=== PATIENT | male | born 1975 | race Caucasian/White ===

== ENCOUNTER 2018-12-17 19:51 | Emergency (ER) | payer OTHER ==
[2018-12-17 21:18] LABS: Basophils % (Auto) 0.5 % (0.0-1.8); Eosinophils # (Auto) 0.2 K/mm3 (0.0-0.4); Eosinophils % (Auto) 1.5 % (0.0-4.3); Hematocrit 40.1 % (35.5-45.6); Hemoglobin 13.3 gm/dl (11.8-15.2); Lymphocytes % (Auto) 37.7 % (13.4-35.0); Mean Corpuscular HGB Conc 33 % (32-34); Mean Corpuscular Volume 88 fl (84-94); Monocytes # (Auto) 0.6 K/mm3 (0.0-0.8); Monocytes % (Auto) 6.1 % (0.0-7.3); Platelet Count 289 K/mm3 (140-440); Red Blood Count 4.55 M/mm3 (3.65-5.03); Red Cell Distribution Width 13.8 % (13.2-15.2)
[2018-12-17 21:41] LABS: BUN/Creatinine Ratio 15; Blood Urea Nitrogen 17 mg/dL (9-20); Calcium 8.7 mg/dL (8.4-10.2); Hemolysis Index 8
[2018-12-17] MEDS ORDERED: BACTRIM DS PO ONE (22:11)
[2018-12-17] MEDS ORDERED: KEFLEX PO ONE (22:11)
--- NOTE | 2018-12-17 22:28 | Emergency Department Report ---
ED Lower Extremity HPI - General Chief Complaint: Extremity Injury, Lower Stated Complaint: TOE PAIN SWELLING Time Seen by Provider: 12/17/18 22:07 Source: patient Mode of arrival: Ambulatory Limitations: No Limitations - History of Present Illness Initial Comments: Mr. Weinberg is a very pleasant 43-year-old male who presents with fourth and fifth toe swelling He has an ulcer in between his fourth and fifth toes. He has a history of diabetic foot ulcer on the right. Had been followed by [facility] in [place]. 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 He currently does not have a primary physician. He has mild pain. + redness and swelling. He takes metformin. His blood sugar readings normally reads in the 200 range. No history of trauma. MD Complaint: other (left foot diabetic infection) -: Gradual, days(s) (2-3) Injury: Hip: Left, Foot: Left, Toes: Left Severity: mild Improves With: nothing Worsens With: nothing Context: other (diabetic) - Related Data Home Medications Medication Instructions Recorded Confirmed Last Taken metFORMIN 850 mg PO TID 12/17/18 12/17/18 Unknown Previous Rx's Medication Instructions Recorded Last Taken Type Sulfamethoxazole/Trimethoprim 1 each PO BID 10 Days #20 tablet 12/17/18 Unknown Rx [Bactrim DS TAB] cephALEXin [Keflex] 500 mg PO Q6HR 10 Days #40 capsule 12/17/18 Unknown Rx Allergies Allergy/AdvReac Type Severity Reaction Status Date / Time No Known Allergies Allergy Unverified 12/17/18 19:53 ED Review of Systems ROS: Stated complaint: TOE PAIN SWELLING Other details as noted in HPI Comment: All other systems reviewed and negative Constitutional: denies: fever, malaise Respiratory: denies: cough Cardiovascular: denies: chest pain ED Past Medical Hx - Past Medical History Previous Medical History?: Yes Hx Diabetes: Yes Additional medical history: Right diabetic foot ulcer - Surgical History Past Surgical History?: No - Social History Smoking Status: Current Every Day Smoker Substance Use Type: Alcohol 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 - Medications Home Medications: Home Medications Medication Instructions Recorded Confirmed Last Taken Type Sulfamethoxazole/Trimethoprim 1 each PO BID 10 Days #20 tablet 12/17/18 Unknown Rx [Bactrim DS TAB] cephALEXin [Keflex] 500 mg PO Q6HR 10 Days #40 capsule 12/17/18 Unknown Rx metFORMIN 850 mg PO TID 12/17/18 12/17/18 Unknown History ED Physical Exam - General Limitations: No Limitations General appearance: alert, in no apparent distress - Head Head exam: Present: atraumatic, normocephalic - Eye Eye exam: Present: normal appearance - ENT ENT exam: Present: mucous membranes moist - Neck Neck exam: Present: normal inspection, full ROM - Respiratory Respiratory exam: Present: normal lung sounds bilaterally. Absent: respiratory distress, wheezes, rales, rhonchi - Cardiovascular Cardiovascular Exam: Present: regular rate, normal rhythm, normal heart sounds. Absent: systolic murmur, diastolic murmur, rubs, gallop - GI/Abdominal GI/Abdominal exam: Present: soft, normal bowel sounds. Absent: distended, tenderness, guarding, rebound - Rectal Rectal exam: Present: deferred - Extremities Exam Extremities exam: Present: other (erythematous edematous fourth and fifth toes on the left foot 2+ DP pulse small 1 cm circular ulcer at the lateral portion of the fourth toe no drainage) - Back Exam Back exam: Present: normal inspection - Neurological Exam Neurological exam: Present: alert, oriented X3 - Psychiatric Psychiatric exam: Present: normal affect, normal mood - Skin Skin exam: Present: warm, dry, normal color, other (right foot sole mid foot: 8 mm small ulcer beefy red center, surrouding callused skin no infection). Absent: rash ED Course Vital Signs 12/17/18 12/17/18 19:56 20:46 Temperature 97.9 F 97.9 F Pulse Rate 80 80 Respiratory 18 18 Rate Blood Pressure 159/93 159/93 O2 Sat by Pulse 99 Oximetry ED Lower Extremity MDM - Lab Data Result diagrams: 12/17/18 21:05 12/17/18 21:05 - Radiology Data Radiology results: image reviewed interpreted by me: Left foot radiographs: 2 views: No fracture deviated toes - Medical Decision Making Infected diabetic foot ulcer, mild infection involving fourth and fifth digits Prescribed Bactrim and Keflex. Referred to general surgeon regional project manager for wound care clinic. Also referred to [facility]. Critical care attestation.: If time is entered above; I have spent that time in minutes in the direct care of this critically ill patient, excluding procedure time. ED Disposition Clinical Impression: Diabetic foot infection, Diabetic foot ulcer Disposition: DC- TO HOME OR SELFCARE Is pt being admited?: No Does the pt Need Aspirin: No Condition: Stable Instructions: Diabetic Foot Ulcers (ED) Prescriptions: Sulfamethoxazole/Trimethoprim [Bactrim DS TAB] 1 each PO BID 10 Days #20 tablet cephALEXin [Keflex] 500 mg PO Q6HR 10 Days #40 capsule Referrals: ADONAY SCHMITT MD [Staff Physician] - JOSE ALBERTO FRAGOSO DPM [Staff Physician] - as needed
--- NOTE | 2018-12-17 23:09 | XRay Report ---
PROCEDURE: XR FOOT 2V LT TECHNIQUE: LEFT foot radiographs, AP and lateral views. CPT 33732 HISTORY: Foot infection. Diabetes. COMPARISONS: None . FINDINGS: There is disruption of the terminal phalangeal tuft of second toe. An acute fracture is not identifie d. Bony alignment is within normal limits. IMPRESSION: No acute fracture Dislocation of the second terminal phalangeal tuft may represent osteomyelitis. Clinical correlation is recommended. This document is electronically signed by Landon Peñaloza MD., December 17 2018 11:07:17 PM ET
[2018-12-17 23:13] VITALS: BP 122/75
== END 2018-12-17 23:22 | disposition home or self-care (01) ==
LOC: ED 19:51
DX: E11.621 Type 2 diabetes mellitus with foot ulcer (principal); L97.529 Non-pressure chronic ulcer of other part of left foot with unspecified severity; F17.200 Nicotine dependence, unspecified, uncomplicated
CPT/HCPCS: 36415; 80048; 85025; 99284

== ENCOUNTER 2020-07-14 11:22 | Inpatient (IN) | payer OTHER ==
[2020-07-14] MEDS ORDERED: CLINDAMYCIN 600 MG/50 mL 600 MG/50 ML BAG IV ONE (14:29)
--- NOTE | 2020-07-14 15:19 | XRay Report ---
RIGHT FOOT 3 VIEW(S) INDICATION / CLINICAL INFORMATION: right foot swelling/pain/redness, plantar ulcer COMPARISON: None available. FINDINGS: BONES / JOINT(S): No acute fracture or subluxation. There is chronic lateral deviation of the phalang es no osseous destruction. SOFT TISSUES: No significant abnormality. ADDITIONAL FINDINGS: None. Signer Name: Napoleon Ocampo MD Signed: 07/14/2020 3:15 PM Workstation Name: [id number]
[2020-07-14 15:23] LABS: Alanine Aminotransferase 26 units/L (7-56); Albumin 3.2 g/dL (3.9-5); BUN/Creatinine Ratio 20; Blood Urea Nitrogen 16 mg/dL (9-20); Calcium 8.7 mg/dL (8.4-10.2); Hemolysis Index 3
--- NOTE | 2020-07-14 15:32 | Emergency Department Report ---
ED Extremity Problem HPI - General Chief complaint: Extremity Injury, Lower Stated complaint: RT FEET/SWELLING Time Seen by Provider: 07/14/20 14:03 Source: patient Mode of arrival: Ambulatory Limitations: No Limitations - History of Present Illness Initial comments: Patient is a 45-year-old male presents emergency room with complaints of right foot pain, swelling, redness that began 4 days ago. Patient states that he has had an ulcer to the bottom of his right foot for approximately 4 weeks. He is not currently seeing a primary care doctor or a wound doctor. He denies any drainage, fever, nausea, vomiting, diarrhea, chills, numbness, weakness. He has a past medical history of diabetes and states he takes metformin 850 mg 3 times daily, he states that his sugars have been running normally per patient. He denies any allergies to medications. - Related Data Home Medications Medication Instructions Recorded Confirmed Last Taken metFORMIN 850 mg PO TID 12/17/18 07/14/20 Unknown Previous Rx's Medication Instructions Recorded Last Taken Type Sulfamethoxazole/Trimethoprim 1 each PO BID 10 Days #20 tablet 12/17/18 Unknown Rx [Bactrim DS TAB] cephALEXin [Keflex] 500 mg PO Q6HR 10 Days #40 capsule 12/17/18 Unknown Rx Allergies Allergy/AdvReac Type Severity Reaction Status Date / Time No Known Allergies Allergy Unverified 12/17/18 19:53 ED Review of Systems ROS: Stated complaint: RT FEET/SWELLING Other details as noted in HPI Comment: All other systems reviewed and negative ED Past Medical Hx - Past Medical History Previous Medical History?: Yes Hx Diabetes: Yes Additional medical history: Right diabetic foot ulcer - Surgical History Past Surgical History?: No - Social History Smoking Status: Never Smoker Substance Use Type: None - Medications Home Medications: Home Medications Medication Instructions Recorded Confirmed Last Taken Type Sulfamethoxazole/Trimethoprim 1 each PO BID 10 Days #20 tablet 12/17/18 07/14/20 Unknown Rx [Bactrim DS TAB] cephALEXin [Keflex] 500 mg PO Q6HR 10 Days #40 capsule 12/17/18 07/14/20 Unknown Rx metFORMIN 850 mg PO TID 12/17/18 07/14/20 Unknown History ED Physical Exam - General Limitations: No Limitations General appearance: alert, in no apparent distress - Head Head exam: Present: atraumatic, normocephalic - Eye Eye exam: Present: normal appearance - ENT ENT exam: Present: mucous membranes moist - Respiratory Respiratory exam: Absent: respiratory distress, accessory muscle use - Extremities Exam Extremities exam: Present: other (2 cm ulceration present to the plantar surface of the right foot, no purulent drainage, does not appear to involve the muscle or bone, the right foot is edematous with erythema present, FROM of the right ankle, foot, and toes, neurovascularly intact) - Neurological Exam Neurological exam: Present: alert, oriented X3 - Psychiatric Psychiatric exam: Present: normal affect, normal mood - Skin Skin exam: Present: warm, dry ED Course Vital Signs 07/14/20 07/14/20 07/14/20 11:55 16:20 17:03 Temperature 98.1 F Pulse Rate 86 Respiratory 14 18 18 Rate Blood Pressure 151/91 Blood Pressure [Left] O2 Sat by Pulse 96 99 Oximetry 07/14/20 18:42 Temperature 98.6 F Pulse Rate 93 H Respiratory 18 Rate Blood Pressure Blood Pressure 131/67 [Left] O2 Sat by Pulse 97 Oximetry - Reevaluation(s) Reevaluation #1: 07/14/20 16:07 Dr. Richardson, ER attending evaluated patient at bedside and advised for patient to be admitted - Consultations Consultation #1: 07/14/20 16:[address] Cordova, hospitalist regarding patient presentation and results, will evaluate patient at bedside 07/14/20 17:[address] Cordova, hospitalist who evaluated the patient at bedside, will accept and resume care of patient, advised to bridge patient to [facility] full admission. ED Medical Decision Making - Lab Data Result diagrams: 07/14/20 14:40 07/14/20 14:40 Lab Results 07/14/20 07/14/20 07/14/20 Range/Units 14:40 14:40 14:40 WBC 12.2 H (4.5-11.0) K/mm3 RBC 3.81 (3.65-5.03) M/mm3 Hgb 10.6 L (11.8-15.2) gm/dl Hct 32.9 L (35.5-45.6) % MCV 86 (84-94) fl MCH 28 (28-32) pg MCHC 32 (32-34) % RDW 15.0 (13.2-15.2) % Plt Count 277 (140-440) K/mm3 Lymph % (Auto) 14.7 (13.4-35.0) % [place] % (Auto) 7.5 H (0.0-7.3) % Eos % (Auto) 1.4 (0.0-4.3) % Baso % (Auto) 0.3 (0.0-1.8) % Lymph # (Auto) 1.8 (1.2-5.4) K/mm3 [place] # (Auto) 0.9 H (0.0-0.8) K/mm3 Eos # (Auto) 0.2 (0.0-0.4) K/mm3 Baso # (Auto) 0.0 (0.0-0.1) K/mm3 Seg Neutrophils % 76.1 H (40.0-70.0) % Seg Neutrophils # 9.3 H (1.8-7.7) K/mm3 Sodium 134 L (137-145) mmol/L Potassium 4.5 (3.6-5.0) mmol/L Chloride 99.1 (98-107) mmol/L Carbon Dioxide 23 (22-30) mmol/L Anion Gap 16 mmol/L BUN 16 (9-20) mg/dL Creatinine 0.8 (0.8-1.3) mg/dL Estimated GFR > 60 ml/min BUN/Creatinine Ratio 20 % Glucose 377 H (75-100) mg/dL POC Glucose (70-105) Lactic Acid 1.40 (0.7-2.0) mmol/L Calcium 8.7 (8.4-10.2) mg/dL Total Bilirubin 0.30 (0.1-1.2) mg/dL AST 17 (5-40) units/L ALT 26 (7-56) units/L Alkaline Phosphatase 169 H (35-129) units/L Total Protein 7.2 (6.3-8.2) g/dL Albumin 3.2 L (3.9-5) g/dL Albumin/Globulin Ratio 0.8 % 10/10/20 Range/Units 17:14 WBC (4.5-11.0) K/mm3 RBC (3.65-5.03) M/mm3 Hgb (11.8-15.2) gm/dl Hct (35.5-45.6) % MCV (84-94) fl MCH (28-32) pg MCHC (32-34) % RDW (13.2-15.2) % Plt Count (140-440) K/mm3 Lymph % (Auto) (13.4-35.0) % [place] % (Auto) (0.0-7.3) % Eos % (Auto) (0.0-4.3) % Baso % (Auto) (0.0-1.8) % Lymph # (Auto) (1.2-5.4) K/mm3 [place] # (Auto) (0.0-0.8) K/mm3 Eos # (Auto) (0.0-0.4) K/mm3 Baso # (Auto) (0.0-0.1) K/mm3 Seg Neutrophils % (40.0-70.0) % Seg Neutrophils # (1.8-7.7) K/mm3 Sodium (137-145) mmol/L Potassium (3.6-5.0) mmol/L Chloride (98-107) mmol/L Carbon Dioxide (22-30) mmol/L Anion Gap mmol/L BUN (9-20) mg/dL Creatinine (0.8-1.3) mg/dL Estimated GFR ml/min BUN/Creatinine Ratio % Glucose (75-100) mg/dL POC Glucose 137 H (70-105) Lactic Acid (0.7-2.0) mmol/L Calcium (8.4-10.2) mg/dL Total Bilirubin (0.1-1.2) mg/dL AST (5-40) units/L ALT (7-56) units/L Alkaline Phosphatase (35-129) units/L Total Protein (6.3-8.2) g/dL Albumin (3.9-5) g/dL Albumin/Globulin Ratio % - Radiology Data Radiology results: report reviewed RIGHT FOOT 3 VIEW(S) INDICATION / CLINICAL INFORMATION: right foot swelling/pain/redness, plantar ulcer COMPARISON: None available. FINDINGS: BONES / JOINT(S): No acute fracture or subluxation. There is chronic lateral deviation of the phalanges no osseous destruction. SOFT TISSUES: No significant abnormality. ADDITIONAL FINDINGS: None. Signer Name: Polina Ochoa MD Signed: 07/14/2020 3:15 PM Workstation Name: [id number] Transcribed By: SS Dictated By: POLINA OCHOA Electronically Authenticated By: POLINA OCHOA Signed Date/Time: 07/14/201514 DD/ 10 TD/TT: - Medical Decision Making Patient is a 45-year-old male presents emergency room with complaints of right foot pain, swelling, redness that began 4 days ago. Patient states that he has had an ulcer to the bottom of his right foot for approximately 4 weeks. He is not currently seeing a primary care doctor or a wound doctor. He denies any drainage, fever, nausea, vomiting, diarrhea, chills, numbness, weakness. He has a past medical history of diabetes and states he takes metformin 850 mg 3 times daily, he states that his sugars have been running normally per patient. He denies any allergies to medications. Vitals are stable. On exam:2 cm ulceration present to the plantar surface of the right foot, no purulent drainage, does not appear to involve the muscle or bone, the right foot is edematous with erythema present, FROM of the right ankle, foot, and toes, neurovascularly intact. Labs with white blood cell count of 12.2, glucose is 377. XR right foot: BONES / JOINT(S): No acute fracture or subluxation. There is chronic lateral deviation of the phalanges no osseous destruction. SOFT TISSUES: No significant abnormality. ADDITIONAL FINDINGS: None. Patient given pain medication, IV fluids, clindamycin IV, IV insulin. Blood glucose improved to 137. Patient has significant cellulitis of the right foot. Dr. Richardson, ER attending evaluated patient at bedside and advised for patient to be admitted. Spoke to Dr. Cordova, hospitalist regarding patient presentation and results, will evaluate patient at bedside. Spoke to Dr. Cordova, hospitalist who evaluated the patient at bedside, will accept and resume care of patient, advised to bridge patient to [facility] full admission. pt admitted to hospitalist service. - Differential Diagnosis Cellulitis, abscess, diabetic ulcer, osteomyelitis Critical care attestation.: If time is entered above; I have spent that time in minutes in the direct care of this critically ill patient, excluding procedure time. ED Disposition Clinical Impression: Cellulitis of right foot Diabetic foot ulcer Qualifiers: Diabetic foot ulcer location: midfoot Diabetes mellitus type: type 2 Laterality: right Non-pressure ulcer stage: with fat layer exposed Qualified Code(s): E11.621 - Type 2 diabetes mellitus with foot ulcer Leukocytosis Qualifiers: Leukocytosis type: unspecified Qualified Code(s): D72.829 - Elevated white blood cell count, unspecified Uncontrolled diabetes mellitus with hyperglycemia Qualifiers: Diabetes mellitus type: type 2 Qualified Code(s): E11.65 - Type 2 diabetes mellitus with hyperglycemia Disposition: 09 OP ADMIT IP TO THIS HOSP Is pt being admited?: Yes Does the pt Need Aspirin: No Condition: Fair Time of Disposition: 17:36
[2020-07-14] MEDS ORDERED: INSULIN REGULAR, HUMAN 100 UNIT/ML 3ML VIAL IV ONE (15:37)
[2020-07-14] MEDS ORDERED: SODIUM CHLORIDE 0.9% 1000 ML 1,000 ML IV ONE (15:37)
[2020-07-14] MEDS ORDERED: INSULIN REGULAR, HUMAN 100 UNITS/1 ML ONE (15:42)
[2020-07-14 15:44] LABS: Basophils % (Auto) 0.3 % (0.0-1.8); Eosinophils # (Auto) 0.2 K/mm3 (0.0-0.4); Eosinophils % (Auto) 1.4 % (0.0-4.3); Hematocrit 32.9 % (35.5-45.6); Hemoglobin 10.6 gm/dl (11.8-15.2); Lymphocytes # (Auto) 1.8 K/mm3 (1.2-5.4); Lymphocytes % (Auto) 14.7 % (13.4-35.0); Mean Corpuscular HGB Conc 32 % (32-34); Mean Corpuscular Volume 86 fl (84-94); Monocytes # (Auto) 0.9 K/mm3 (0.0-0.8); Monocytes % (Auto) 7.5 % (0.0-7.3); Platelet Count 277 K/mm3 (140-440); Red Blood Count 3.81 M/mm3 (3.65-5.03)
[2020-07-14] MEDS ORDERED: oxyCODONE /ACETAMINOPHEN 5-325MG TAB PO ONE (17:01)
[2020-07-14] MEDS ORDERED: oxyCODONE /ACETAMINOPHEN 5-325MG TAB ONE (17:01)
--- NOTE | 2020-07-14 22:01 | History and Physical Report ---
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 Patient also has a small ulcer on the bottom of the feet about 1.5 cm 9 x 1.5 cm which is circular appreciated. Warm to touch. And also running fever. Patient states his blood glucose levels are very within 203 100. Patient is on oral hypoglycemics. - Past Medical History Previous Medical History?: Yes Hx Diabetes: Yes Additional medical history: Right diabetic foot ulcer - Surgical History Past Surgical History?: No - Social History Smoking Status: Never Smoker Substance Use Type: None family history Htn - Medications Home Medications: Home Medications Medication Instructions Recorded Confirmed Last Taken Type Sulfamethoxazole/Trimethoprim 1 each PO BID 10 Days #20 tablet 12/17/18 07/14/20 Unknown Rx [Bactrim DS TAB] cephALEXin [Keflex] 500 mg PO Q6HR 10 Days #40 capsule 12/17/18 07/14/20 Unknown Rx metFORMIN 850 mg PO TID 12/17/18 07/14/20 Unknown History Review of Systems ROS: Stated complaint: RT FEET/SWELLING Other details as noted in HPI Comment: All other systems reviewed and negative Medications and Allergies Allergies Allergy/AdvReac Type Severity Reaction Status Date / Time No Known Allergies Allergy Unverified 12/17/18 19:53 Home Medications Medication Instructions Recorded Confirmed Last Taken Type Sulfamethoxazole/Trimethoprim 1 each PO BID 10 Days #20 tablet 12/17/18 07/14/20 Unknown Rx [Bactrim DS TAB] cephALEXin [Keflex] 500 mg PO Q6HR 10 Days #40 capsule 12/17/18 07/14/20 Unknown Rx metFORMIN 850 mg PO TID 12/17/18 07/14/20 Unknown History Exam - Constitutional Vitals: Temp Pulse Resp BP Pulse Ox 98.6 F 93 H 18 131/67 97 07/14/20 18:42 07/14/20 18:42 07/14/20 18:42 07/14/20 18:42 07/14/20 18:42 General appearance: Present: no acute distress, well-nourished - EENT Eyes: Present: PERRL ENT: hearing intact, clear oral mucosa - Neck Neck: Present: supple, normal ROM - Respiratory Respiratory effort: normal Respiratory: bilateral: CTA - Cardiovascular Heart rate: 78 Rhythm: regular Heart Sounds: Present: S1 & S2. Absent: rub, click - Extremities Extremities: pulses symmetrical, No edema Extremity abnormal: other (Right foot swelling and perforated ulcer on the heel near the metatarsal head of the third on the right foot. Warm to touch the whole foot) Peripheral Pulses: within normal limits - Abdominal General gastrointestinal: Present: soft, non-tender, non-distended, normal bowel sounds Male genitourinary: Present: normal - Integumentary Integumentary: Present: clear, warm, dry - Musculoskeletal Musculoskeletal: gait normal, strength equal bilaterally - Psychiatric Psychiatric: appropriate mood/affect, intact judgment & insight - Neurologic Neurologic: CNII-XII intact, moves all extremities Results - Labs CBC & Chem 7: 07/14/20 14:40 07/14/20 14:40 Labs: Laboratory Last Values WBC 12.2 K/mm3 (4.5-11.0) H 07/14/20 14:40 RBC 3.81 M/mm3 (3.65-5.03) 07/14/20 14:40 Hgb 10.6 gm/dl (11.8-15.2) L 07/14/20 14:40 Hct 32.9 % (35.5-45.6) L 07/14/20 14:40 MCV 86 fl (84-94) 07/14/20 14:40 MCH 28 pg (28-32) 07/14/20 14:40 MCHC 32 % (32-34) 07/14/20 14:40 RDW 15.0 % (13.2-15.2) 07/14/20 14:40 Plt Count 277 K/mm3 (140-440) 07/14/20 14:40 Lymph % (Auto) 14.7 % (13.4-35.0) 07/14/20 14:40 [place] % (Auto) 7.5 % (0.0-7.3) H 07/14/20 14:40 Eos % (Auto) 1.4 % (0.0-4.3) 07/14/20 14:40 Baso % (Auto) 0.3 % (0.0-1.8) 07/14/20 14:40 Lymph # (Auto) 1.8 K/mm3 (1.2-5.4) 07/14/20 14:40 [place] # (Auto) 0.9 K/mm3 (0.0-0.8) H 07/14/20 14:40 Eos # (Auto) 0.2 K/mm3 (0.0-0.4) 07/14/20 14:40 Baso # (Auto) 0.0 K/mm3 (0.0-0.1) 07/14/20 14:40 Seg Neutrophils % 76.1 % (40.0-70.0) H 07/14/20 14:40 Seg Neutrophils # 9.3 K/mm3 (1.8-7.7) H 07/14/20 14:40 Sodium 134 mmol/L (137-145) L 07/14/20 14:40 Potassium 4.5 mmol/L (3.6-5.0) 07/14/20 14:40 Chloride 99.1 mmol/L (98-107) 07/14/20 14:40 Carbon Dioxide 23 mmol/L (22-30) 07/14/20 14:40 Anion Gap 16 mmol/L 07/14/20 14:40 BUN 16 mg/dL (9-20) 07/14/20 14:40 Creatinine 0.8 mg/dL (0.8-1.3) 07/14/20 14:40 Estimated GFR > 60 ml/min 07/14/20 14:40 BUN/Creatinine Ratio 20 % 07/14/20 14:40 Glucose 377 mg/dL (75-100) H 07/14/20 14:40 POC Glucose 137 (70-105) H 07/14/20 17:14 Lactic Acid 1.40 mmol/L (0.7-2.0) 07/14/20 14:40 Calcium 8.7 mg/dL (8.4-10.2) 07/14/20 14:40 Total Bilirubin 0.30 mg/dL (0.1-1.2) 07/14/20 14:40 AST 17 units/L (5-40) 07/14/20 14:40 ALT 26 units/L (7-56) 07/14/20 14:40 Alkaline Phosphatase 169 units/L (35-129) H 07/14/20 14:40 Total Protein 7.2 g/dL (6.3-8.2) 07/14/20 14:40 Albumin 3.2 g/dL (3.9-5) L 07/14/20 14:40 Albumin/Globulin Ratio 0.8 % 07/14/20 14:40 Microbiology: Microbiology 07/14/20 14:40 Peripheral/Venous Blood Culture - Preliminary Culture in Progress 07/14/20 14:35 Peripheral/Venous Blood Culture - Preliminary Culture in Progress Vasquez/IV: Voiding Method Urinal Assessment and Plan Advance Directives: Yes (Full code) VTE prophylaxis?: Chemical Plan of care discussed with patient/family: Yes - Patient Problems (1) Cellulitis of right foot Current Visit: Yes Status: Acute Plan to address problem: Patient initiated on IV Unasyn and vancomycin pending wound cultures (2) Diabetic foot ulcer Current Visit: Yes Status: Acute Qualifiers: Diabetic foot ulcer location: midfoot Diabetes mellitus type: type 2 Laterality: right Non-pressure ulcer stage: with fat layer exposed Qualified Code(s): E11.621 - Type 2 diabetes mellitus with foot ulcer; L97.412 - 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 Patient initiated on Novolin 70/30 20 units twice a day No hypoglycemics which were discontinued Continue metformin at thousand twice daily (4) DVT prophylaxis Current Visit: Yes Status: Acute Plan to address problem: On heparin and GI prophylaxis
[2020-07-14] MEDS ORDERED: ONDANSETRON 4 MG/2 ML INJ IV PRN (22:02)
[2020-07-14] MEDS ORDERED: METOCLOPRAMIDE 10 MG/2 ML INJ IV PRN (22:02)
[2020-07-14] MEDS ORDERED: VANCOMYCIN PHARMACY TO DOSE IV SCH (23:00)
[2020-07-14] MEDS: SODIUM CHLORIDE 0.9% 1000 ML 1,000 ML IV SCH (23:01)
[2020-07-14] MEDS: VANCOMYCIN 2,000 MG in SODIUM CHLORIDE 0.9% 500 ML 500 ML IV SCH (23:02)
[2020-07-14] MEDS: INSULIN LISPRO 100 UNIT/ML VIAL 3 mL SUB-Q SCH (23:04)
[2020-07-14] MEDS: HYDROmorphone 1 MG/1 ML INJ IV PRN (23:10)
[2020-07-15] MEDS: AMPICILLIN/SULBACTA 3GM/100ML 3 GM/100 ML BAG IV SCH ×4 (00:29→17:43)
[2020-07-15] MEDS: HYDROmorphone 1 MG/1 ML INJ IV PRN ×3 (04:40→20:42)
[2020-07-15 06:16] LABS: Basophils % (Auto) 0.3 % (0.0-1.8); Eosinophils # (Auto) 0.1 K/mm3 (0.0-0.4); Eosinophils % (Auto) 1.1 % (0.0-4.3); Hematocrit 31.7 % (35.5-45.6); Hemoglobin 10.3 gm/dl (11.8-15.2); Lymphocytes # (Auto) 2.3 K/mm3 (1.2-5.4); Lymphocytes % (Auto) 18.8 % (13.4-35.0); Mean Corpuscular HGB Conc 33 % (32-34); Mean Corpuscular Volume 86 fl (84-94); Monocytes # (Auto) 1.1 K/mm3 (0.0-0.8); Monocytes % (Auto) 8.5 % (0.0-7.3); Platelet Count 267 K/mm3 (140-440); Red Blood Count 3.68 M/mm3 (3.65-5.03)
[2020-07-15 06:31] LABS: Alanine Aminotransferase 23 units/L (7-56); Albumin 2.6 g/dL (3.9-5); Blood Urea Nitrogen 11 mg/dL (9-20); Calcium 8.6 mg/dL (8.4-10.2); Hemolysis Index 0
[2020-07-15 06:37] LABS: BUN/Creatinine Ratio 18
[2020-07-15] MEDS: FAMOTIDINE 20 MG TAB PO SCH ×2 (09:16→21:01)
[2020-07-15] MEDS: HEPARIN 5,000 UNIT/1 ML VIAL SUB-Q SCH ×2 (09:16→21:01)
[2020-07-15] MEDS: INSULIN NPH/REGULAR 70/30 INJ SUB-Q SCH ×2 (09:16→16:51)
[2020-07-15] MEDS: INSULIN LISPRO 100 UNIT/ML VIAL 3 mL SUB-Q SCH ×4 (09:17→21:01)
[2020-07-15] MEDS: oxyCODONE /ACETAMINOPHEN 5-325MG TAB PO PRN (09:25)
[2020-07-15] MEDS: VANCOMYCIN 2,000 MG in SODIUM CHLORIDE 0.9% 500 ML 500 ML IV SCH (11:59)
[2020-07-15] MEDS: SODIUM CHLORIDE 0.9% 1000 ML 1,000 ML IV SCH (15:42)
[2020-07-15] MEDS: ACETAMINOPHEN 325 MG TAB PO PRN (16:47)
--- NOTE | 2020-07-15 19:25 | Progress Note ---
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 Patient also has a small ulcer on the bottom of the feet about 1.5 cm 9 x 1.5 cm which is circular appreciated. Warm to touch. And also running fever. Patient states his blood glucose levels are very within 203 100. Patient is on oral hypoglycemics. Objective - Constitutional Vitals: Vital Signs - 12hr 07/15/20 07/15/20 11:20 16:24 Temperature 98.9 F 100.8 F H Pulse Rate 81 89 Respiratory 18 18 Rate Blood Pressure 139/84 171/93 O2 Sat by Pulse 94 94 Oximetry General appearance: Present: no acute distress, well-nourished - EENT Eyes: PERRL, EOM intact ENT: hearing intact, clear oral mucosa Ears: bilateral: normal - Neck Neck: supple, normal ROM - Respiratory Respiratory effort: normal Respiratory: bilateral: CTA - Breasts Breasts: normal - Cardiovascular Heart rate: 78 Rhythm: regular Heart Sounds: Present: S1 & S2. Absent: gallop, rub Extremities: pulses intact, No edema, normal color, Full ROM Extremity abnormal: other (Right foot perforated ulcer 2 cm x 2 cm and right foot warm to touch) - Gastrointestinal General gastrointestinal: Present: soft, non-tender, non-distended, normal bowel sounds - Genitourinary Male genitourinary: normal - Integumentary Integumentary: clear, warm, dry - Musculoskeletal Musculoskeletal: 1, strength equal bilaterally - Neurologic Neurologic: moves all extremities - Psychiatric Psychiatric: memory intact, appropriate mood/affect, intact judgment & insight - Labs CBC & Chem 7: 07/15/20 05:01 07/15/20 05:01 Labs: Abnormal lab results 07/14/20 07/15/20 07/15/20 Range/Units 21:43 05:01 05:01 WBC 12.4 H (4.5-11.0) K/mm3 Hgb 10.3 L (11.8-15.2) gm/dl Hct 31.7 L (35.5-45.6) % [place] % (Auto) 8.5 H (0.0-7.3) % [place] # (Auto) 1.1 H (0.0-0.8) K/mm3 Seg Neutrophils % 71.3 H (40.0-70.0) % Seg Neutrophils # 8.9 H (1.8-7.7) K/mm3 Sodium 136 L (137-145) mmol/L Creatinine 0.6 L (0.8-1.3) mg/dL Glucose 169 H (75-100) mg/dL POC Glucose 207 H (70-105) Hemoglobin A1c (4-6) % Alkaline Phosphatase 205 H (35-129) units/L Albumin 2.6 L (3.9-5) g/dL 07/15/20 07/15/20 07/15/20 Range/Units 05:01 07:46 11:56 WBC (4.5-11.0) K/mm3 Hgb (11.8-15.2) gm/dl Hct (35.5-45.6) % [place] % (Auto) (0.0-7.3) % [place] # (Auto) (0.0-0.8) K/mm3 Seg Neutrophils % (40.0-70.0) % Seg Neutrophils # (1.8-7.7) K/mm3 Sodium (137-145) mmol/L Creatinine (0.8-1.3) mg/dL Glucose (75-100) mg/dL POC Glucose 159 H 181 H (70-105) Hemoglobin A1c 10.9 H (4-6) % Alkaline Phosphatase (35-129) units/L Albumin (3.9-5) g/dL 07/15/20 Range/Units 16:17 WBC (4.5-11.0) K/mm3 Hgb (11.8-15.2) gm/dl Hct (35.5-45.6) % [place] % (Auto) (0.0-7.3) % [place] # (Auto) (0.0-0.8) K/mm3 Seg Neutrophils % (40.0-70.0) % Seg Neutrophils # (1.8-7.7) K/mm3 Sodium (137-145) mmol/L Creatinine (0.8-1.3) mg/dL Glucose (75-100) mg/dL POC Glucose 179 H (70-105) Hemoglobin A1c (4-6) % Alkaline Phosphatase (35-129) units/L Albumin (3.9-5) g/dL
[2020-07-16] MEDS: VANCOMYCIN 2,000 MG in SODIUM CHLORIDE 0.9% 500 ML 500 ML IV SCH ×2 (00:29→13:48)
[2020-07-16] MEDS: oxyCODONE /ACETAMINOPHEN 5-325MG TAB PO PRN ×3 (00:29→23:17)
[2020-07-16] MEDS: AMPICILLIN/SULBACTA 3GM/100ML 3 GM/100 ML BAG IV SCH ×5 (00:30→23:55)
[2020-07-16] MEDS: HYDROmorphone 1 MG/1 ML INJ IV PRN ×3 (05:47→21:35)
[2020-07-16 07:19] LABS: Basophils % (Auto) 0.2 % (0.0-1.8); Eosinophils # (Auto) 0.1 K/mm3 (0.0-0.4); Hematocrit 30.6 % (35.5-45.6); Hemoglobin 10.1 gm/dl (11.8-15.2); Lymphocytes % (Auto) 16.7 % (13.4-35.0); Mean Corpuscular HGB Conc 33 % (32-34); Mean Corpuscular Volume 85 fl (84-94); Monocytes # (Auto) 1.1 K/mm3 (0.0-0.8); Platelet Count 266 K/mm3 (140-440); Red Blood Count 3.61 M/mm3 (3.65-5.03); Red Cell Distribution Width 14.6 % (13.2-15.2)
[2020-07-16 07:41] LABS: Blood Urea Nitrogen 8 mg/dL (9-20); Calcium 8.6 mg/dL (8.4-10.2); Hemolysis Index 8
[2020-07-16 07:45] LABS: BUN/Creatinine Ratio 16
[2020-07-16] MEDS: INSULIN LISPRO 100 UNIT/ML VIAL 3 mL SUB-Q SCH ×4 (09:15→23:15)
[2020-07-16] MEDS: INSULIN NPH/REGULAR 70/30 INJ SUB-Q SCH ×2 (10:06→18:07)
[2020-07-16] MEDS: FAMOTIDINE 20 MG TAB PO SCH ×2 (10:32→21:35)
[2020-07-16] MEDS: HEPARIN 5,000 UNIT/1 ML VIAL SUB-Q SCH ×2 (10:32→21:35)
--- NOTE | 2020-07-16 13:03 | Progress Note ---
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 Patient also has a small ulcer on the bottom of the feet about 1.5 cm 9 x 1.5 cm which is circular appreciated. Warm to touch. And also running fever. Patient states his blood glucose levels are very within 203 100. Patient is on oral hypoglycemics 07/16 patient is alert and oriented and feels better. He offers no specific complaints except pain in the right foot which he states is well controlled with pain medication He denies any chest pain or shortness of breath Denies any fever or chills but has low-grade temp T-max 100.2 today. Denies cough, nausea or abdominal pain Lab results reviewed Assessment and plan Infected diabetic foot ulcer Cellulitis right foot Blood cultures no growth in 24 hours Continue IV Unasyn and vancomycin Wound care nurse consulted Type 2 diabetes Continue twice daily insulin regimen Accu-Cheks reviewed Hypertension ?? . BP recordings reviewed We will start the patient on low-dose lisinopril Monitor blood pressure Leukocytosis Mild Monitor CBC Normocytic anemia No overt bleed H&H stable Objective - Constitutional Vitals: Vital Signs - 12hr 07/16/20 07/16/20 07/16/20 04:47 10:29 11:52 Temperature 99.1 F 100.2 F H Pulse Rate 84 86 89 Respiratory 16 20 Rate Blood Pressure 177/104 194/100 160/82 O2 Sat by Pulse 95 94 Oximetry General appearance: Present: no acute distress - EENT Eyes: PERRL, EOM intact ENT: hearing intact, clear oral mucosa - Neck Neck: supple, normal ROM, no masses or JVD - Respiratory Respiratory effort: normal Respiratory: bilateral: CTA - Cardiovascular Rhythm: regular Heart Sounds: Present: S1 & S2 Extremity abnormal: edema (Right pedal edema, erythema over the dorsum of the right foot, opening in the plantar aspect of distal right foot with no active discharge) - Gastrointestinal General gastrointestinal: Present: soft, non-tender Rectal Exam: deferred - Genitourinary Male genitourinary: deferred - Integumentary Integumentary: rash (Erythematous rash over dorsum of right foot) - Musculoskeletal Musculoskeletal: strength equal bilaterally - Neurologic Neurologic: CNII-XII intact, no focal deficits, moves all extremities - Psychiatric Psychiatric: appropriate mood/affect - Labs CBC & Chem 7: 07/16/20 06:33 07/16/20 06:33 Labs: Abnormal lab results 07/15/20 07/15/20 07/16/20 Range/Units 16:17 21:04 06:33 WBC 12.1 H (4.5-11.0) K/mm3 RBC 3.61 L (3.65-5.03) M/mm3 Hgb 10.1 L (11.8-15.2) gm/dl Hct 30.6 L (35.5-45.6) % [place] % (Auto) 9.0 H (0.0-7.3) % [place] # (Auto) 1.1 H (0.0-0.8) K/mm3 Seg Neutrophils % 73.1 H (40.0-70.0) % Seg Neutrophils # 8.8 H (1.8-7.7) K/mm3 Sodium (137-145) mmol/L Carbon Dioxide (22-30) mmol/L BUN (9-20) mg/dL Creatinine (0.8-1.3) mg/dL Glucose (75-100) mg/dL POC Glucose 179 H 117 H (70-105) 07/16/20 07/16/20 Range/Units 06:33 07:59 WBC (4.5-11.0) K/mm3 RBC (3.65-5.03) M/mm3 Hgb (11.8-15.2) gm/dl Hct (35.5-45.6) % [place] % (Auto) (0.0-7.3) % [place] # (Auto) (0.0-0.8) K/mm3 Seg Neutrophils % (40.0-70.0) % Seg Neutrophils # (1.8-7.7) K/mm3 Sodium 134 L (137-145) mmol/L Carbon Dioxide 21 L (22-30) mmol/L BUN 8 L (9-20) mg/dL Creatinine 0.5 L (0.8-1.3) mg/dL Glucose 126 H (75-100) mg/dL POC Glucose 131 H (70-105)
[2020-07-16] MEDS: LISINOPRIL 10 MG TAB PO SCH (13:47)
[2020-07-16] MEDS: ACETAMINOPHEN 325 MG TAB PO PRN ×2 (15:46→23:10)
[2020-07-17] MEDS: VANCOMYCIN 2,000 MG in SODIUM CHLORIDE 0.9% 500 ML 500 ML IV SCH ×3 (01:08→22:49)
[2020-07-17] MEDS: HYDROmorphone 1 MG/1 ML INJ IV PRN (04:37)
[2020-07-17] MEDS: AMPICILLIN/SULBACTA 3GM/100ML 3 GM/100 ML BAG IV SCH ×3 (05:52→17:51)
[2020-07-17] MEDS: oxyCODONE /ACETAMINOPHEN 5-325MG TAB PO PRN ×3 (06:49→19:58)
--- NOTE | 2020-07-17 07:18 | Progress Note ---
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 Patient also has a small ulcer on the bottom of the feet about 1.5 cm 9 x 1.5 cm which is circular appreciated. Warm to touch. And also running fever. Patient states his blood glucose levels are very within 203 100. Patient is on oral hypoglycemics 07/16 patient is alert and oriented and feels better. He offers no specific complaints except pain in the right foot which he states is well controlled with pain medication He denies any chest pain or shortness of breath Denies any fever or chills but has low-grade temp T-max 100.2 today. Denies cough, nausea or abdominal pain Lab results reviewed 07/17: Tmax of 99.9, last night was upto 102. Continue management, follow cultures, obtain AM labs. ID consulted Assessment and plan Sepsis secondary to Infected diabetic foot ulcer Abx as noted below Check lactate level Cellulitis right foot Blood cultures no growth in 24 hours Continue IV Unasyn and vancomycin Wound care nurse consulted and input noted Awaiting ID input Type 2 diabetes- POORLY CONTROLLED Continue twice daily insulin regimen Accu-Cheks reviewed Obtain Clinical Nurse Leader consultation for diabetic education Hypertension ?? . BP recordings reviewed We will start the patient on low-dose lisinopril Continue improving since addition of lisinoprile Monitor blood pressure Leukocytosis Mild Monitor CBC Normocytic anemia No overt bleed H&H stable Morbid Obesity dvt/gi prophy Continue in hospital stay for better control, as wound is at high risk for deteriorating History Interval history: Patient seen and examined, reports some improvement, does not have a primary doctor. Hospitalist Physical - Constitutional Vitals: Temp Pulse Resp BP Pulse Ox 98.6 F 82 18 149/74 96 07/17/20 04:43 07/17/20 05:51 07/17/20 05:51 07/17/20 05:51 07/17/20 05:51 General appearance: Present: no acute distress, well-nourished - EENT Eyes: Present: PERRL - Neck Neck: Present: supple, normal ROM - Respiratory Respiratory effort: normal Respiratory: bilateral: CTA - Cardiovascular Rhythm: regular Heart Sounds: Present: S1 & S2. Absent: systolic murmur - Extremities Extremities: no ischemia, pulses intact, No edema, Full ROM Peripheral Pulses: within normal limits - Abdominal General gastrointestinal: soft - Integumentary Integumentary: Present: warm, erythema (RIGHT FOOT SWELLING AND ULCERATION) - Psychiatric Psychiatric: appropriate mood/affect, intact judgment & insight, memory intact, cooperative - Neurologic Neurologic: CNII-XII intact, moves all extremities, gait normal - Allied Health Allied health notes reviewed: nursing Results - Labs CBC & Chem 7: 07/16/20 06:33 07/16/20 06:33 Labs: Laboratory Last Values WBC 12.1 K/mm3 (4.5-11.0) H 07/16/20 06:33 RBC 3.61 M/mm3 (3.65-5.03) L 07/16/20 06:33 Hgb 10.1 gm/dl (11.8-15.2) L 07/16/20 06:33 Hct 30.6 % (35.5-45.6) L 07/16/20 06:33 MCV 85 fl (84-94) 07/16/20 06:33 MCH 28 pg (28-32) 07/16/20 06:33 MCHC 33 % (32-34) 07/16/20 06:33 RDW 14.6 % (13.2-15.2) 07/16/20 06:33 Plt Count 266 K/mm3 (140-440) 07/16/20 06:33 Lymph % (Auto) 16.7 % (13.4-35.0) 07/16/20 06:33 [place] % (Auto) 9.0 % (0.0-7.3) H 07/16/20 06:33 Eos % (Auto) 1.0 % (0.0-4.3) 07/16/20 06:33 Baso % (Auto) 0.2 % (0.0-1.8) 07/16/20 06:33 Lymph # (Auto) 2.0 K/mm3 (1.2-5.4) 07/16/20 06:33 [place] # (Auto) 1.1 K/mm3 (0.0-0.8) H 07/16/20 06:33 Eos # (Auto) 0.1 K/mm3 (0.0-0.4) 07/16/20 06:33 Baso # (Auto) 0.0 K/mm3 (0.0-0.1) 07/16/20 06:33 Seg Neutrophils % 73.1 % (40.0-70.0) H 07/16/20 06:33 Seg Neutrophils # 8.8 K/mm3 (1.8-7.7) H 07/16/20 06:33 Sodium 134 mmol/L (137-145) L 07/16/20 06:33 Potassium 4.1 mmol/L (3.6-5.0) 07/16/20 06:33 Chloride 99.6 mmol/L (98-107) 07/16/20 06:33 Carbon Dioxide 21 mmol/L (22-30) L 07/16/20 06:33 Anion Gap 18 mmol/L 07/16/20 06:33 BUN 8 mg/dL (9-20) L 07/16/20 06:33 Creatinine 0.5 mg/dL (0.8-1.3) L 07/16/20 06:33 Estimated GFR > 60 ml/min 07/16/20 06:33 BUN/Creatinine Ratio 16 % 07/16/20 06:33 Glucose 126 mg/dL (75-100) H 07/16/20 06:33 POC Glucose 180 (70-105) H 07/16/20 21:36 Hemoglobin A1c 10.9 % (4-6) H 07/15/20 05:01 Lactic Acid 1.40 mmol/L (0.7-2.0) 07/14/20 14:40 Calcium 8.6 mg/dL (8.4-10.2) 07/16/20 06:33 Total Bilirubin 0.60 mg/dL (0.1-1.2) 07/15/20 05:01 AST 18 units/L (5-40) 07/15/20 05:01 ALT 23 units/L (7-56) 07/15/20 05:01 Alkaline Phosphatase 205 units/L (35-129) H 07/15/20 05:01 Total Protein 6.7 g/dL (6.3-8.2) 07/15/20 05:01 Albumin 2.6 g/dL (3.9-5) L 07/15/20 05:01 Albumin/Globulin Ratio 0.6 % 07/15/20 05:01 Vancomycin Trough 11.6 ug/mL (5.0-20.0) 07/16/20 22:51 Microbiology: Microbiology 07/14/20 14:40 Peripheral/Venous Blood Culture - Preliminary NO GROWTH AFTER 48 HOURS 07/14/20 14:35 Peripheral/Venous Blood Culture - Preliminary NO GROWTH AFTER 48 HOURS Vasquez/IV: Voiding Method Toilet IV Catheter Type [Left Hand] Peripheral IV IV Catheter Type [Left Peripheral IV Antecubital] Active Medications - Current Medications Current Medications: Generic Name Dose Route Start Last Admin Trade Name Freq PRN Reason Stop Dose Admin Acetaminophen 650 mg 07/14/20 22:02 07/16/20 23:10 Tylenol PO 650 mg Q4H PRN Administration Pain MILD(1-3)/Fever >100.5/SUERO Famotidine 20 mg 07/15/20 10:00 07/16/20 21:35 Pepcid PO 20 mg BID SAVANA Administration Heparin Sodium (Porcine) 5,000 unit 07/15/20 10:00 07/16/20 21:35 Heparin SUB-Q 5,000 unit Q12HR SAVANA Administration Hydromorphone HCl 0.5 mg 07/14/20 22:02 07/17/20 04:37 Dilaudid IV 0.5 mg Q3H PRN Administration Pain , Severe (7-10) Ampicillin Sodium/Sulbactam Sodium 3 gm in 100 mls @ 100 mls/hr 07/15/20 00:00 07/17/20 05:52 Unasyn/Ns 3 Gm/100 Ml IV 100 mls/hr Q6HR SAVANA Administration Protocol Vancomycin HCl 2,000 mg/ 540 mls @ 250 mls/hr 07/14/20 23:00 07/17/20 01:08 Sodium Chloride IV 250 mls/hr Q12H SAVANA Administration Insulin Human Isoph/Insulin Regular 25 unit 07/15/20 19:43 07/16/20 18:07 Humulin 70/30 SUB-Q 25 unit BIDDIAB SAVANA Administration Insulin Human Lispro 0 unit 07/15/20 07:30 07/16/20 23:15 Humalog SUB-Q 2 unit ACHS SAVANA Administration Protocol Lisinopril 10 mg 07/16/20 13:00 07/16/20 13:47 Zestril PO 10 mg QDAY SAVANA Administration Metoclopramide HCl 10 mg 07/14/20 22:02 Reglan IV Q6H PRN Nausea And Vomiting Ondansetron HCl 4 mg 07/14/20 22:02 Zofran IV Q3H PRN Nausea And Vomiting Oxycodone/Acetaminophen 1 tab 07/14/20 22:02 07/17/20 06:49 Percocet 5/325 PO 1 tab Q6H PRN Administration Pain, Moderate (4-6) Sodium Chloride 10 ml 07/14/20 23:00 07/16/20 21:36 Sodium Chloride Flush Syringe 10 Ml IV 10 ml BID SAVANA Administration Sodium Chloride 10 ml 07/14/20 22:02 Sodium Chloride Flush Syringe 10 Ml IV PRN PRN LINE FLUSH Nutrition/Malnutrition Assess - Dietary Evaluation Nutrition/Malnutrition Findings: Nutrition Notes Start: 07/15/20 09:51 Freq: Status: Active Protocol: Document 07/15/20 09:51 LM (Rec: 07/15/20 10:00 LM [id number]) Nutrition Notes Need for Assessment generated from: bat carrier Initial or Follow up Assessment Current Diagnosis Diabetes Other Pertinent Diagnosis MD foot ulcer Current Diet consistent CHO Labs/Tests Na 136 A1C 10.9 Pertinent Medications Reviewed Height 6 ft 2 in Weight 134 kg [place] Body Weight (kg) 86.36 BMI 37.9 Weight Status Obese Subjective/Other Information RN screen for skin risk. No dianna score in chart but pt suero BD foot ulcer/cellulitis. Pt stated he is eating well with no wt loss. Pt wanted diet education. Burn Absent Trauma Absent GI Symptoms None Current % PO Good (75-100%) Minimum of two criteria No physical signs of malnutrition #2 Nutrition Diagnosis Food and nutrition-related knowledge deficit Etiology No prior DM diet education As Evidenced by Signs and Symptoms A1C 10.9, DM foot ulcer, pt wanting education #1 Nutrition Diagnosis Increased nutrient needs ( specify in comment below) Comments: protein Etiology wound healing As Evidenced by Signs and Symptoms pt with DM foot ulcer Is patient on ventilator? No Is Patient Ambulatory and/or Out of Bed Yes REE-([place]. Jeor-ambulatory/OOB) [ 8562.675 NUTR.MSJOOB] Kcal/Kg value to use for calculation 17 Approximate Energy Requirements Using 2278 kcal/Kg Calculation Used for Recommendations Kcal/kg Additional Notes Protein: 138-165g (1.25-1.5g/ kg using AdjBW 110kg) Fluid: 1ml/kcal Nutrition Intervention Change Diet Order: Continue Add Supplement/Snack (indicate name/kcal Ensure HP daily for extra /protein ) protein for wound Provides kCal: 160 Provides Protein (gm) 16 Teaching Recipient Patient Learning Readiness Fair Teaching Methods Discussion,Handout Response to Teaching Verbalize understanding, Reinforcement needed Education Handouts Provided Carbohydrate Counting for People with DM Goal #1 Meet at least 75% of energy and protein needs Goal #2 wound healing Anticipated Discharge Needs: Consistent CHO Follow-Up By: 07/19/20 Additional Comments F/U for stable intakes, ONS tolerance
[2020-07-17] MEDS: INSULIN LISPRO 100 UNIT/ML VIAL 3 mL SUB-Q SCH ×5 (08:57→22:53)
[2020-07-17] MEDS: FAMOTIDINE 20 MG TAB PO SCH ×2 (09:03→21:45)
[2020-07-17] MEDS: LISINOPRIL 10 MG TAB PO SCH (09:19)
[2020-07-17] MEDS: HEPARIN 5,000 UNIT/1 ML VIAL SUB-Q SCH ×2 (09:20→21:45)
[2020-07-17] MEDS: INSULIN NPH/REGULAR 70/30 INJ SUB-Q SCH ×2 (09:20→17:54)
--- NOTE | 2020-07-17 09:26 | Consultation ---
History of Present Illness - Reason for Consult Consult date: 07/17/20 - History of Present Illness 45-year-old man past medical history of poorly controlled diabetes presented to the hospital complaining of right foot swelling. He notes his began approximately a week prior to admission with associated with redness as well. It is noted he has a small ulcer on the bottom of his foot, and is complaining of an associated fever. He is on oral hypoglycemics to control his diabetes, however his sugars are often above 200. He is not with wound care for his foot. Febrile to 102 degrees with a white count of 12.1. Currently on Unasyn and vancomycin. Blood cultures currently pending, no growth after 48 hours. Imaging personally reviewed: Foot x-ray: No obvious osseous destruction Review of Systems: Bold if positive, otherwise negative General: fevers, chills, rigors HEENT: visual disturbance, diplopia, eye pain Respiratory: cough, sputum, hemoptysis, shortness of breath Cardiovascular: chest pain, syncope Gastrointestinal: nausea, vomiting, diarrhea, abdominal pain Genitourinary: dysuria, hematuria, flank pain Musculoskeletal: neck pain, back pain, joint pain, edema Neurologic: headaches, seizures Hematologic: easy bruising or bleeding Endocrine: night sweats, acute weight loss Skin: rash, jaundice, redness Psychiatric: suicidal, homicidal ideation Medications and Allergies Allergies Allergy/AdvReac Type Severity Reaction Status Date / Time No Known Allergies Allergy Unverified 12/17/18 19:53 Home Medications Medication Instructions Recorded Confirmed Last Taken Type Sulfamethoxazole/Trimethoprim 1 each PO BID 10 Days #20 tablet 12/17/18 07/14/20 Unknown Rx [Bactrim DS TAB] cephALEXin [Keflex] 500 mg PO Q6HR 10 Days #40 capsule 12/17/18 07/14/20 Unknown Rx metFORMIN 850 mg PO TID 12/17/18 07/14/20 Unknown History Active Meds: Active Medications Acetaminophen (Tylenol) 650 mg PO Q4H PRN PRN Reason: Pain MILD(1-3)/Fever >100.5/SUERO Last Admin: 07/16/20 23:10 Dose: 650 mg Documented by: Famotidine (Pepcid) 20 mg PO BID SAVANA Last Admin: 07/16/20 21:35 Dose: 20 mg Documented by: Heparin Sodium (Porcine) (Heparin) 5,000 unit SUB-Q Q12HR [facility] Last Admin: 07/16/20 21:35 Dose: 5,000 unit Documented by: Hydromorphone HCl (Dilaudid) 0.5 mg IV Q3H PRN PRN Reason: Pain , Severe (7-10) Last Admin: 07/17/20 04:37 Dose: 0.5 mg Documented by: Ampicillin Sodium/Sulbactam Sodium (Unasyn/Ns 3 Gm/100 Ml) 3 gm in 100 mls @ 100 mls/hr IV Q6HR [facility]; Protocol Last Admin: 07/17/20 05:52 Dose: 100 mls/hr Documented by: Vancomycin HCl 2,000 mg/ (Sodium Chloride) 540 mls @ 250 mls/hr IV Q12H [facility] Last Admin: 07/17/20 01:08 Dose: 250 mls/hr Documented by: Insulin Human Isoph/Insulin Regular (Humulin 70/30) 25 unit SUB-Q BIDDIAB [facility] Last Admin: 07/16/20 18:07 Dose: 25 unit Documented by: Insulin Human Lispro (Humalog) 0 unit SUB-Q ACHS [facility]; Protocol Last Admin: 07/17/20 09:03 Dose: Not Given Documented by: Lisinopril (Zestril) 10 mg PO QDAY [facility] Last Admin: 07/16/20 13:47 Dose: 10 mg Documented by: Metoclopramide HCl (Reglan) 10 mg IV Q6H PRN PRN Reason: Nausea And Vomiting Ondansetron HCl (Zofran) 4 mg IV Q3H PRN PRN Reason: Nausea And Vomiting Oxycodone/Acetaminophen (Percocet 5/325) 1 tab PO Q6H PRN PRN Reason: Pain, Moderate (4-6) Last Admin: 07/17/20 06:49 Dose: 1 tab Documented by: Sodium Chloride (Sodium Chloride Flush Syringe 10 Ml) 10 ml IV BID [facility] Last Admin: 07/16/20 21:36 Dose: 10 ml Documented by: Sodium Chloride (Sodium Chloride Flush Syringe 10 Ml) 10 ml IV PRN PRN PRN Reason: LINE FLUSH Physical Examination - Physical Exam Narrative exam: Physical Exam: Constitutional: Alert, cooperative, obese male. No acute distress Head, Ears, Nose: Normocephalic, atraumatic. External ears, nose normal Eyes: Conjunctivae/corneas clear. No icterus. No ptosis. Neck: Supple, no meningeal signs Oral: dentition fair, no thrush Cardiovascular: S1, S2 normal. Respiratory: Good air entry, clear to auscultation bilaterally GI: Soft, non-tender; bowel sounds normal. No peritoneal signs. Musculoskeletal: Right forefoot circular wound. Skin: No rash or abscess Hem/Lymphatic: No palpable cervical or supraclavicular nodes. No lymphangitis Psych: Mood ok. Affect normal Neurological: Awake, alert, oriented. No gross abnormality - Constitutional Vitals: Vital Signs Temp Pulse Resp BP Pulse Ox 98.6 F 82 18 149/74 96 07/17/20 04:43 07/17/20 05:51 07/17/20 05:51 07/17/20 05:51 07/17/20 05:51 Temperature -Last 24 Hours Temperature 98.6 F Temperature 99.9 F Temperature 102.0 F Temperature 99.6 F Temperature 99.4 F Temperature 101.6 F Temperature 102.3 F Temperature 100.2 F Results - Labs CBC & Chem 7: 07/16/20 06:33 07/16/20 06:33 Labs: Abnormal lab results 07/16/20 07/16/20 07/16/20 Range/Units 06:33 12:30 17:03 Carbon Dioxide 21 L (22-30) mmol/L POC Glucose 196 H 262 H (70-105) 07/16/20 07/17/20 Range/Units 21:36 08:00 Carbon Dioxide (22-30) mmol/L POC Glucose 180 H 139 H (70-105) Assessment and Plan Cultures: Blood culture 07/14/2020 pending A/P: 45-year-old man past medical history diabetes admitted with right foot wound #Acute sepsis: Present with fevers and leukocytosis. Secondary to infected foot wound. #Right foot wound: Due to poorly controlled diabetes. Given the present admission likely infected. #Type 2 diabetes: Poorly controlled #Obesity: BMI 39 Recs: -Obtain MRI of the right foot -Continue vancomycin and Unasyn for now. -Follow-up blood cultures -Follow-up wound care recommendations Thank you for the consult, we will continue to follow. Andrew Hendrickson MD [facility], [place], [facility] M: [phone] O: [phone] F: [phone]
[2020-07-17] MEDS: ACETAMINOPHEN 325 MG TAB PO PRN ×2 (16:16→21:45)
--- NOTE | 2020-07-17 17:41 | Magnetic Resonance Report ---
MRI RIGHT FOOT WITHOUT CONTRAST INDICATION / CLINICAL INFORMATION: Right plantar forefoot wound, r/o osteomyelitis.. TECHNIQUE: Multiplanar, multisequence MR images were obtained. COMPARISON: 07/14/2020 radiographs FINDINGS: BONES: Edema and decreased intrinsic T1 signal at the heads of the third and fourth metatarsals and a lso involving the adjacent proximal phalanges, worse at the third metatarsal head/proximal phalanx. N o significant cortical destruction. No fracture. No osseous lesion. JOINTS: Small amount of fluid in the third and fourth metatarsal phalangeal joints. Hallux valgus and lateral deviation of the remaining phalanges. SOFT TISSUES: Multiple uyyfn-ioealsos-zomui ulcerations at the plantar forefoot the largest subjacent to the third metatarsal phalangeal joint with sinus tract extending to the head of the third metatar betty. Extensive regional edema and and scattered subcutaneous gas. Multiloculated fluid collections ex tending along the flexor tendons likely represent abscesses and measure approximately 5.0 x 2.1 x 2.0 cm in AP by TV by CC dimension. MUSCLES: Diffuse muscle edema suggesting myositis. FLEXOR TENDONS: Flexor tenosynovitis. EXTENSOR TENDONS: No significant abnormality. LIGAMENTS: Intact. ADDITIONAL FINDINGS: None. IMPRESSION: 1. Plantar forefoot ulcerations with sinus tract extending to the third metatarsal head with acute os teomyelitis/septic arthritis centered about the third and fourth metatarsal phalangeal joints. Additi onally, there is extensive regional edema, subcutaneous gas, and multiloculated fluid collections rahel racteristic for abscess extending along the adjacent forefoot flexor tendons. 2. Diffuse myositis likely neuropathic in origin. Report dictated by: Vic Sharpe MD Report dictated on: 07/17/2020 4:29 PM I have reviewed the images, agree with this report, and edited this report as needed. Signer Name: Jaciel Pedro MD Signed: 07/17/2020 5:36 PM Workstation Name: [id number]
[2020-07-18] MEDS: AMPICILLIN/SULBACTA 3GM/100ML 3 GM/100 ML BAG IV SCH ×5 (00:56→23:36)
[2020-07-18] MEDS: oxyCODONE /ACETAMINOPHEN 5-325MG TAB PO PRN ×3 (03:19→16:04)
[2020-07-18 06:07] LABS: Hematocrit 29.1 % (35.5-45.6); Hemoglobin 9.7 gm/dl (11.8-15.2); Mean Corpuscular HGB Conc 33 % (32-34); Mean Corpuscular Volume 85 fl (84-94); Platelet Count 303 K/mm3 (140-440); Red Blood Count 3.44 M/mm3 (3.65-5.03); Red Cell Distribution Width 15.4 % (13.2-15.2)
[2020-07-18 06:14] LABS: Blood Urea Nitrogen 9 mg/dL (9-20); Calcium 8.5 mg/dL (8.4-10.2); Hemolysis Index 0
[2020-07-18 06:25] LABS: BUN/Creatinine Ratio 15
[2020-07-18] MEDS: LISINOPRIL 10 MG TAB PO SCH (09:59)
[2020-07-18] MEDS: FAMOTIDINE 20 MG TAB PO SCH ×2 (09:59→21:11)
[2020-07-18] MEDS: HEPARIN 5,000 UNIT/1 ML VIAL SUB-Q SCH ×2 (10:00→21:10)
[2020-07-18] MEDS: INSULIN NPH/REGULAR 70/30 INJ SUB-Q SCH (10:00)
[2020-07-18] MEDS: INSULIN LISPRO 100 UNIT/ML VIAL 3 mL SUB-Q SCH ×4 (10:00→23:34)
--- NOTE | 2020-07-18 10:00 | Consultation ---
History of Present Illness Consult date: 07/18/20 Chief complaint: Diabetic right foot abscess - History of present illness History of present illness: 45 yo male with poorly controlled DM, right foot abscess and right foot osteomyelitis. He does not smoke. Past History Past Medical History: diabetes Medications and Allergies Allergies Allergy/AdvReac Type Severity Reaction Status Date / Time No Known Allergies Allergy Unverified 12/17/18 19:53 Home Medications Medication Instructions Recorded Confirmed Last Taken Type Sulfamethoxazole/Trimethoprim 1 each PO BID 10 Days #20 tablet 12/17/18 07/14/20 Unknown Rx [Bactrim DS TAB] cephALEXin [Keflex] 500 mg PO Q6HR 10 Days #40 capsule 12/17/18 07/14/20 Unknown Rx metFORMIN 850 mg PO TID 12/17/18 07/14/20 Unknown History Active Meds: Active Medications Acetaminophen (Tylenol) 650 mg PO Q4H PRN PRN Reason: Pain MILD(1-3)/Fever >100.5/SUERO Last Admin: 07/17/20 21:45 Dose: 650 mg Documented by: Famotidine (Pepcid) 20 mg PO BID [facility] Last Admin: 07/17/20 21:45 Dose: 20 mg Documented by: Heparin Sodium (Porcine) (Heparin) 5,000 unit SUB-Q Q12HR [facility] Last Admin: 07/17/20 21:45 Dose: 5,000 unit Documented by: Hydromorphone HCl (Dilaudid) 0.5 mg IV Q3H PRN PRN Reason: Pain , Severe (7-10) Last Admin: 07/17/20 04:37 Dose: 0.5 mg Documented by: Ampicillin Sodium/Sulbactam Sodium (Unasyn/Ns 3 Gm/100 Ml) 3 gm in 100 mls @ 100 mls/hr IV Q6HR [facility]; Protocol Last Admin: 07/18/20 05:15 Dose: 100 mls/hr Documented by: Vancomycin HCl 2,000 mg/ (Sodium Chloride) 540 mls @ 250 mls/hr IV Q12H [facility] Last Admin: 07/17/20 22:49 Dose: 250 mls/hr Documented by: Insulin Human Isoph/Insulin Regular (Humulin 70/30) 25 unit SUB-Q BIDDIAB [facility] Last Admin: 07/17/20 17:54 Dose: 25 unit Documented by: Insulin Human Lispro (Humalog) 0 unit SUB-Q ACHS [facility]; Protocol Last Admin: 07/17/20 22:53 Dose: Not Given Documented by: Lisinopril (Zestril) 10 mg PO QDAY [facility] Last Admin: 07/17/20 09:19 Dose: 10 mg Documented by: Metoclopramide HCl (Reglan) 10 mg IV Q6H PRN PRN Reason: Nausea And Vomiting Ondansetron HCl (Zofran) 4 mg IV Q3H PRN PRN Reason: Nausea And Vomiting Oxycodone/Acetaminophen (Percocet 5/325) 1 tab PO Q6H PRN PRN Reason: Pain, Moderate (4-6) Last Admin: 07/18/20 03:19 Dose: 1 tab Documented by: Sodium Chloride (Sodium Chloride Flush Syringe 10 Ml) 10 ml IV BID [facility] Last Admin: 07/17/20 22:49 Dose: 10 ml Documented by: Sodium Chloride (Sodium Chloride Flush Syringe 10 Ml) 10 ml IV PRN PRN PRN Reason: LINE FLUSH Review of Systems All systems: negative (none) Exam Vital Signs Temp Pulse Resp BP Pulse Ox 98.1 F 86 14 151/91 96 07/14/20 11:55 07/14/20 11:55 07/14/20 11:55 07/14/20 11:55 07/14/20 11:55 - General physical appearance Positive: well developed, well nourished, no distress - Eyes Positive: PERRL, normal occular movement - ENT Positive: normal pinna, normal nares, normal mucosa, no hearing loss, no congestion - Neck Positive: no masses, no bruits, trachea midline, no venous distension - Respiratory Positive: normal expansion, normal respiratory effort, clear to auscultation - Cardiovascular Rhythm: regular Heart Sounds: Present: S1 & S2. Absent: rub, click - Extremities Extremities: no ischemia - Breasts Breasts: deferred - Abdomen Abdomen: Present: soft, bowel sounds normal. Absent: tender, distended Hernia: none - Genitourinary Male Genitourinary: deferred - Integumentary other (There is a dime sized ulceration over the plantar aspect of the right foot at about the expected location of the 3rd MTP joint. There is no obvious fluctuance but the foot is edematous. Right DP pulse is 2+. No significant associated cellulitis.) - Neurologic Neurologic: alert and oriented to time, place and person, motor strength and se nsation are grossly intact - Musculoskeletal normal gait, normal posture - Psychiatric Psychiatric: appropriate mood/affect, intact judgment & insight Results - Labs 07/18/20 05:19 07/18/20 05:19 Abnormal lab results 07/17/20 07/17/20 07/18/20 Range/Units 12:12 16:50 05:19 WBC 12.4 H (4.5-11.0) K/mm3 RBC 3.44 L (3.65-5.03) M/mm3 Hgb 9.7 L (11.8-15.2) gm/dl Hct 29.1 L (35.5-45.6) % RDW 15.4 H (13.2-15.2) % Sodium (137-145) mmol/L Creatinine (0.8-1.3) mg/dL Glucose (75-100) mg/dL POC Glucose 261 H 170 H (70-105) 07/18/20 Range/Units 05:19 WBC (4.5-11.0) K/mm3 RBC (3.65-5.03) M/mm3 Hgb (11.8-15.2) gm/dl Hct (35.5-45.6) % RDW (13.2-15.2) % Sodium 136 L (137-145) mmol/L Creatinine 0.6 L (0.8-1.3) mg/dL Glucose 106 H (75-100) mg/dL POC Glucose (70-105) Diabetes panel 07/18/20 Range/Units 05:19 Sodium 136 L (137-145) mmol/L Potassium 4.1 (3.6-5.0) mmol/L Chloride 98.0 (98-107) mmol/L Carbon Dioxide 24 (22-30) mmol/L BUN 9 (9-20) mg/dL Creatinine 0.6 L (0.8-1.3) mg/dL Glucose 106 H (75-100) mg/dL Calcium 8.5 (8.4-10.2) mg/dL Calcium panel 07/18/20 Range/Units 05:19 Calcium 8.5 (8.4-10.2) mg/dL Pituitary panel 07/18/20 Range/Units 05:19 Sodium 136 L (137-145) mmol/L Potassium 4.1 (3.6-5.0) mmol/L Chloride 98.0 (98-107) mmol/L Carbon Dioxide 24 (22-30) mmol/L BUN 9 (9-20) mg/dL Creatinine 0.6 L (0.8-1.3) mg/dL Glucose 106 H (75-100) mg/dL Calcium 8.5 (8.4-10.2) mg/dL Adrenal panel 07/18/20 Range/Units 05:19 Sodium 136 L (137-145) mmol/L Potassium 4.1 (3.6-5.0) mmol/L Chloride 98.0 (98-107) mmol/L Carbon Dioxide 24 (22-30) mmol/L BUN 9 (9-20) mg/dL Creatinine 0.6 L (0.8-1.3) mg/dL Glucose 106 H (75-100) mg/dL Calcium 8.5 (8.4-10.2) mg/dL - Imaging Additional studies: MRI of right foot - See report. Assessment and Plan - Patient Problems (1) Foot abscess, right Current Visit: Yes Status: Acute Plan to address problem: 1) Strict DM control 2) Broad spectrum IV antibiotics 3) I&D of right foot tomorrow or Thursday as schedule allows 4) Recommended TMA of right 3rd & 4th toes secondary to associated osteomyelitis of the 3rd & 4th metatarsal heads - pt refuses. He prefers 6 weeks of IV antibiotics and is aware that this may fail.
[2020-07-18] MEDS: VANCOMYCIN 2,000 MG in SODIUM CHLORIDE 0.9% 500 ML 500 ML IV SCH ×2 (11:20→23:34)
--- NOTE | 2020-07-18 12:35 | Vascular Lab Report ---
DUPLEX DOPPLER LOWER EXTREMITY ARTERIAL, RIGHT INDICATION: Right foot abscess. Right foot osteomyelitis. History of diabetes, hypertension, smoking, obesity and sepsis. TECHNIQUE: Arterial duplex examination of the right lower extremity was performed using B-mode, color flow and s pectral Doppler assessment. FINDINGS: Common Femoral Artery: PSV 137 cm/sec. Triphasic waveform. Proximal SFA: PSV 135 cm/sec. Triphasic waveform. Mid SFA: PSV 126 cm/sec. Triphasic waveform. Distal SFA: PSV 120 cm/sec. Triphasic waveform. Popliteal artery: PSV 116 cm/sec. Triphasic waveform. Posterior tibial artery: PSV 27 cm/sec. Biphasic waveform. Dorsalis Pedis Artery: PSV 177 cm/sec. Biphasic waveform. IMPRESSION: 1. Diminished peak systolic velocity and abnormal biphasic waveform in the posterior tibial artery is suggestive of upstream stenosis. 2. Abnormally increased peak systolic velocity in the dorsalis pedis artery with an abnormal biphasic waveform is also likely secondary to stenosis upstream. Signer Name: Michael Ramey MD Signed: 07/18/2020 12:30 PM Workstation Name: [id number]
--- NOTE | 2020-07-18 14:47 | Progress Note ---
Assessment and Plan Cultures: Blood culture 07/14/2020 pending A/P: 45-year-old man past medical history diabetes admitted with right foot wound #Acute sepsis: Present with fevers and leukocytosis. Secondary to infected foot wound. #Right foot osteomyelitis with abscess: Due to poorly controlled diabetes. Given the present admission likely infected. Podiatry recommending amputation, however patient refuses. Will arrange for antibiotics #Type 2 diabetes: Poorly controlled #Obesity: BMI 39 Recs: -Continue vancomycin and Unasyn for now. -For debridement in OR. Please obtain cultures from abscess. -PICC line and antibiotic selection pending cultures obtained from surgery. -Follow-up blood cultures -Follow-up wound care recommendations Thank you for the consult, we will continue to follow. Andrew Hendrickson MD [facility] ([facility]) M: [phone] O: [phone] F: [phone] Subjective Date of service: 07/18/20 Principal diagnosis: Right foot cellulitis and perforated ulcer Interval history: Afebrile overnight with a white count of 12.4. Blood cultures remain negative so far. Imaging personally reviewed: MRI: Ulceration with sinus tract extending to the third metatarsal head with acute osteomyelitis with concern for significant abscess extending along adjacent forefoot flexor tendons. Objective - Exam Narrative Exam: Physical Exam: Constitutional: Alert, cooperative, obese male. No acute distress Head, Ears, Nose: Normocephalic, atraumatic. Eyes: Conjunctivae/corneas clear. No icterus. No ptosis. Neck: Supple, no meningeal signs Oral: dentition fair, no thrush Cardiovascular: S1, S2 normal. Respiratory: Good air entry, clear to auscultation bilaterally GI: Soft, non-tender; bowel sounds normal. No peritoneal signs. Musculoskeletal: Right forefoot circular wound. Skin: No rash or abscess Hem/Lymphatic: No palpable cervical or supraclavicular nodes. No lymphangitis Psych: Mood ok. Affect normal Neurological: Awake, alert, oriented. No gross abnormality - Constitutional Vitals: Vital Signs Temp Pulse Resp BP Pulse Ox 98.6 F 78 22 125/67 96 07/18/20 12:01 07/18/20 12:01 07/18/20 12:01 07/18/20 12:01 07/18/20 12:01 Temperature -Last 24 Hours Temperature 98.6 F Temperature 98.5 F Temperature 99.4 F Temperature 100.1 F - Labs CBC & Chem 7: 07/18/20 05:19 07/18/20 05:19 Labs: Abnormal lab results 07/17/20 07/18/20 07/18/20 Range/Units 16:50 05:19 05:19 WBC 12.4 H (4.5-11.0) K/mm3 RBC 3.44 L (3.65-5.03) M/mm3 Hgb 9.7 L (11.8-15.2) gm/dl Hct 29.1 L (35.5-45.6) % RDW 15.4 H (13.2-15.2) % Sodium 136 L (137-145) mmol/L Creatinine 0.6 L (0.8-1.3) mg/dL Glucose 106 H (75-100) mg/dL POC Glucose 170 H (70-105) 07/18/20 Range/Units 12:18 WBC (4.5-11.0) K/mm3 RBC (3.65-5.03) M/mm3 Hgb (11.8-15.2) gm/dl Hct (35.5-45.6) % RDW (13.2-15.2) % Sodium (137-145) mmol/L Creatinine (0.8-1.3) mg/dL Glucose (75-100) mg/dL POC Glucose 224 H (70-105)
--- NOTE | 2020-07-18 17:30 | Progress Note ---
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 Patient also has a small ulcer on the bottom of the feet about 1.5 cm 9 x 1.5 cm which is circular appreciated. Warm to touch. And also running fever. Patient states his blood glucose levels are very within 203 100. Patient is on oral hypoglycemics 07/16 patient is alert and oriented and feels better. He offers no specific complaints except pain in the right foot which he states is well controlled with pain medication He denies any chest pain or shortness of breath Denies any fever or chills but has low-grade temp T-max 100.2 today. Denies cough, nausea or abdominal pain Lab results reviewed 07/17: Tmax of 99.9, last night was upto 102. Continue management, follow cultures, obtain AM labs. ID consulted 07/18: MRI findings indicative of osteomyelitis with gas. Consulted surgery immediately. Patient was evaluated by them recommended to have TMA of some of the toes. Patient refused nevertheless will undergo debridement. He understands that 6 weeks of antibiotic therapy may fail due to severity of the disease. We will continue aggressive management of blood sugar and his underlying diabetes and also recommend weight loss. PICC line ordered for 6 weeks of antibiotic therapy Assessment and plan Sepsis secondary to Infected diabetic foot ulcer Abx as noted below Check lactate level Cellulitis right foot Blood cultures no growth in 24 hours Continue IV Unasyn and vancomycin Wound care nurse consulted and input noted Awaiting ID input Type 2 diabetes- POORLY CONTROLLED Continue twice daily insulin regimen Accu-Cheks reviewed Obtain [employer] consultation for diabetic education Hypertension ?? . BP recordings reviewed We will start the patient on low-dose lisinopril Continue improving since addition of lisinoprile Monitor blood pressure Leukocytosis Mild Monitor CBC Normocytic anemia No overt bleed H&H stable Morbid Obesity dvt/gi prophy Continue in hospital stay for better control, as wound is at high risk for deteriorating History Interval history: Patient seen and examined, reports some improvement, advised of findings on MRI Hospitalist Physical - Physical exam Narrative exam: General appearance: Present: no acute distress, well-nourished - EENT Eyes: Present: PERRL - Neck Neck: Present: supple, normal ROM - Respiratory Respiratory effort: normal Respiratory: bilateral: CTA - Cardiovascular Rhythm: regular Heart Sounds: Present: S1 & S2. Absent: systolic murmur - Extremities Extremities: no ischemia, pulses intact, No edema, Full ROM Peripheral Pulses: within normal limits - Abdominal General gastrointestinal: soft - Integumentary Integumentary: Present: warm, erythema (RIGHT FOOT SWELLING AND ULCERATION) - Psychiatric Psychiatric: appropriate mood/affect, intact judgment & insight, memory intact, cooperative - Neurologic Neurologic: CNII-XII intact, moves all extremities, gait normal - Allied Health Allied health notes reviewed: nursing - Constitutional Vitals: Temp Pulse Resp BP Pulse Ox 98.6 F 78 22 125/67 96 07/18/20 12:01 07/18/20 12:01 07/18/20 12:01 07/18/20 12:01 07/18/20 12:01 General appearance: Present: no acute distress, well-nourished Results - Labs CBC & Chem 7: 07/18/20 05:19 07/18/20 05:19 Labs: Laboratory Last Values WBC 12.4 K/mm3 (4.5-11.0) H 07/18/20 05:19 RBC 3.44 M/mm3 (3.65-5.03) L 07/18/20 05:19 Hgb 9.7 gm/dl (11.8-15.2) L 07/18/20 05:19 Hct 29.1 % (35.5-45.6) L 07/18/20 05:19 MCV 85 fl (84-94) 07/18/20 05:19 MCH 28 pg (28-32) 07/18/20 05:19 MCHC 33 % (32-34) 07/18/20 05:19 RDW 15.4 % (13.2-15.2) H 07/18/20 05:19 Plt Count 303 K/mm3 (140-440) 07/18/20 05:19 Lymph % (Auto) 16.7 % (13.4-35.0) 07/16/20 06:33 [place] % (Auto) 9.0 % (0.0-7.3) H 07/16/20 06:33 Eos % (Auto) 1.0 % (0.0-4.3) 07/16/20 06:33 Baso % (Auto) 0.2 % (0.0-1.8) 07/16/20 06:33 Lymph # (Auto) 2.0 K/mm3 (1.2-5.4) 07/16/20 06:33 [place] # (Auto) 1.1 K/mm3 (0.0-0.8) H 07/16/20 06:33 Eos # (Auto) 0.1 K/mm3 (0.0-0.4) 07/16/20 06:33 Baso # (Auto) 0.0 K/mm3 (0.0-0.1) 07/16/20 06:33 Seg Neutrophils % 73.1 % (40.0-70.0) H 07/16/20 06:33 Seg Neutrophils # 8.8 K/mm3 (1.8-7.7) H 07/16/20 06:33 Sodium 136 mmol/L (137-145) L 07/18/20 05:19 Potassium 4.1 mmol/L (3.6-5.0) 07/18/20 05:19 Chloride 98.0 mmol/L (98-107) 07/18/20 05:19 Carbon Dioxide 24 mmol/L (22-30) 07/18/20 05:19 Anion Gap 18 mmol/L 07/18/20 05:19 BUN 9 mg/dL (9-20) 07/18/20 05:19 Creatinine 0.6 mg/dL (0.8-1.3) L 07/18/20 05:19 Estimated GFR > 60 ml/min 07/18/20 05:19 BUN/Creatinine Ratio 15 % 07/18/20 05:19 Glucose 106 mg/dL (75-100) H 07/18/20 05:19 POC Glucose 224 (70-105) H 07/18/20 12:18 Hemoglobin A1c 10.9 % (4-6) H 07/15/20 05:01 Lactic Acid 1.40 mmol/L (0.7-2.0) 07/14/20 14:40 Calcium 8.5 mg/dL (8.4-10.2) 07/18/20 05:19 Total Bilirubin 0.60 mg/dL (0.1-1.2) 07/15/20 05:01 AST 18 units/L (5-40) 07/15/20 05:01 ALT 23 units/L (7-56) 07/15/20 05:01 Alkaline Phosphatase 205 units/L (35-129) H 07/15/20 05:01 Total Protein 6.7 g/dL (6.3-8.2) 07/15/20 05:01 Albumin 2.6 g/dL (3.9-5) L 07/15/20 05:01 Albumin/Globulin Ratio 0.6 % 07/15/20 05:01 Vancomycin Trough 11.6 ug/mL (5.0-20.0) 07/16/20 22:51 Microbiology: Microbiology 07/14/20 14:40 Peripheral/Venous Blood Culture - Preliminary NO GROWTH AFTER 4 DAYS 07/14/20 14:35 Peripheral/Venous Blood Culture - Preliminary NO GROWTH AFTER 4 DAYS Vasquez/IV: Voiding Method Toilet IV Catheter Type [Left Hand] Peripheral IV IV Catheter Type [Left Peripheral IV Antecubital] Active Medications - Current Medications Current Medications: Generic Name Dose Route Start Last Admin Trade Name Freq PRN Reason Stop Dose Admin Acetaminophen 650 mg 07/14/20 22:02 07/17/20 21:45 Tylenol PO 650 mg Q4H PRN Administration Pain MILD(1-3)/Fever >100.5/SUERO Famotidine 20 mg 07/15/20 10:00 07/18/20 09:59 Pepcid PO 20 mg BID SAVANA Administration Heparin Sodium (Porcine) 5,000 unit 07/15/20 10:00 07/18/20 10:00 Heparin SUB-Q 5,000 unit Q12HR SAVANA Administration Hydromorphone HCl 0.5 mg 07/14/20 22:02 07/17/20 04:37 Dilaudid IV 0.5 mg Q3H PRN Administration Pain , Severe (7-10) Ampicillin Sodium/Sulbactam Sodium 3 gm in 100 mls @ 100 mls/hr 07/15/20 00:00 07/18/20 14:10 Unasyn/Ns 3 Gm/100 Ml IV Infused Q6HR [facility] Infusion Protocol Vancomycin HCl 2,000 mg/ 540 mls @ 250 mls/hr 07/14/20 23:00 07/18/20 13:30 Sodium Chloride IV Infused Q12H [facility] Infusion Insulin Human Isoph/Insulin Regular 25 unit 07/15/20 19:43 07/18/20 10:00 Humulin 70/30 SUB-Q 25 unit BIDDIAB S[facility]NA Administration Insulin Human Lispro 0 unit 07/15/20 07:30 07/18/20 13:07 Humalog SUB-Q 3 unit ACHS S[facility]NA Administration Protocol Lisinopril 10 mg 07/16/20 13:00 07/18/20 09:59 Zestril PO 10 mg QDAY ASVANA Administration Metoclopramide HCl 10 mg 07/14/20 22:02 Reglan IV Q6H PRN Nausea And Vomiting Ondansetron HCl 4 mg 07/14/20 22:02 Zofran IV Q3H PRN Nausea And Vomiting Oxycodone/Acetaminophen 1 tab 07/14/20 22:02 07/18/20 16:04 Percocet 5/325 PO 1 tab Q6H PRN Administration Pain, Moderate (4-6) Sodium Chloride 10 ml 07/14/20 23:00 07/18/20 10:02 Sodium Chloride Flush Syringe 10 Ml IV 10 ml BID SAVANA Administration Sodium Chloride 10 ml 07/14/20 22:02 Sodium Chloride Flush Syringe 10 Ml IV PRN PRN LINE FLUSH Nutrition/Malnutrition Assess - Dietary Evaluation Nutrition/Malnutrition Findings: Nutrition Notes Start: 07/15/20 09:51 Freq: Status: Active Protocol: Document 07/15/20 09:51 LM (Rec: 07/15/20 10:00 LM [id number]) Nutrition Notes Need for Assessment generated from: room service associate Initial or Follow up Assessment Current Diagnosis Diabetes Other Pertinent Diagnosis MD foot ulcer Current Diet consistent CHO Labs/Tests Na 136 A1C 10.9 Pertinent Medications Reviewed Height 6 ft 2 in Weight 134 kg [place] Body Weight (kg) 86.36 BMI 37.9 Weight Status Obese Subjective/Other Information RN screen for skin risk. No dianna score in chart but pt suero BD foot ulcer/cellulitis. Pt stated he is eating well with no wt loss. Pt wanted diet education. Burn Absent Trauma Absent GI Symptoms None Current % PO Good (75-100%) Minimum of two criteria No physical signs of malnutrition #2 Nutrition Diagnosis Food and nutrition-related knowledge deficit Etiology No prior DM diet education As Evidenced by Signs and Symptoms A1C 10.9, DM foot ulcer, pt wanting education #1 Nutrition Diagnosis Increased nutrient needs ( specify in comment below) Comments: protein Etiology wound healing As Evidenced by Signs and Symptoms pt with DM foot ulcer Is patient on ventilator? No Is Patient Ambulatory and/or Out of Bed Yes REE-([place]-St. Jeor-ambulatory/OOB) [ 2989.675 NUTR.MSJOOB] Kcal/Kg value to use for calculation 17 Approximate Energy Requirements Using 2278 kcal/Kg Calculation Used for Recommendations Kcal/kg Additional Notes Protein: 138-165g (1.25-1.5g/ kg using AdjBW 110kg) Fluid: 1ml/kcal Nutrition Intervention Change Diet Order: Continue Add Supplement/Snack (indicate name/kcal Ensure HP daily for extra /protein ) protein for wound Provides kCal: 160 Provides Protein (gm) 16 Teaching Recipient Patient Learning Readiness Fair Teaching Methods Discussion,Handout Response to Teaching Verbalize understanding, Reinforcement needed Education Handouts Provided Carbohydrate Counting for People with DM Goal #1 Meet at least 75% of energy and protein needs Goal #2 wound healing Anticipated Discharge Needs: Consistent CHO Follow-Up By: 07/19/20 Additional Comments F/U for stable intakes, ONS tolerance
[2020-07-18] MEDS: ACETAMINOPHEN 325 MG TAB PO PRN (18:41)
[2020-07-19] MEDS: oxyCODONE /ACETAMINOPHEN 5-325MG TAB PO PRN ×2 (06:32→18:22)
[2020-07-19] MEDS: AMPICILLIN/SULBACTA 3GM/100ML 3 GM/100 ML BAG IV SCH ×3 (06:32→19:05)
[2020-07-19 07:40] LABS: Hemoglobin 9.5 gm/dl (11.8-15.2); Mean Corpuscular HGB Conc 33 % (32-34); Mean Corpuscular Volume 85 fl (84-94); Platelet Count 331 K/mm3 (140-440); Red Blood Count 3.43 M/mm3 (3.65-5.03); Red Cell Distribution Width 15.1 % (13.2-15.2)
[2020-07-19 08:04] LABS: Blood Urea Nitrogen 10 mg/dL (9-20); Calcium 8.6 mg/dL (8.4-10.2); Hemolysis Index 44
[2020-07-19 08:09] LABS: BUN/Creatinine Ratio 17
[2020-07-19] MEDS: INSULIN LISPRO 100 UNIT/ML VIAL 3 mL SUB-Q SCH ×5 (08:48→22:39)
[2020-07-19] MEDS: LISINOPRIL 10 MG TAB PO SCH (09:39)
[2020-07-19] MEDS: INSULIN NPH/REGULAR 70/30 INJ SUB-Q SCH ×4 (09:39→18:16)
[2020-07-19] MEDS: HEPARIN 5,000 UNIT/1 ML VIAL SUB-Q SCH ×3 (09:41→22:14)
[2020-07-19] MEDS: FAMOTIDINE 20 MG TAB PO SCH ×2 (09:41→22:14)
--- NOTE | 2020-07-19 11:36 | Progress Note ---
Assessment and Plan Cultures: Blood culture 07/14/2020 pending A/P: 45-year-old man past medical history diabetes admitted with right foot wound #Acute sepsis: Present with fevers and leukocytosis. Secondary to infected foot wound. #Right foot osteomyelitis with abscess: Due to poorly controlled diabetes. Given the present admission likely infected. Podiatry recommending amputation, however patient refuses. Will arrange for antibiotics #Type 2 diabetes: Poorly controlled #Obesity: BMI 39 Recs: -Continue vancomycin and Unasyn for now. -For debridement in OR. Please obtain cultures from abscess. -PICC line and antibiotic selection pending cultures obtained from surgery. -Follow-up blood cultures -Follow-up wound care recommendations Thank you for the consult, we will continue to follow. Andrew Hendrickson MD [facility] ([facility]) M: [phone] O: [phone] F: [phone] Subjective Date of service: 07/19/20 Principal diagnosis: Right foot cellulitis and perforated ulcer Interval history: Febrile to 100.8 with a white count of 11.5. Objective - Exam Narrative Exam: Physical Exam: Constitutional: Alert, cooperative, obese male. No acute distress Head, Ears, Nose: Normocephalic, atraumatic. Eyes: Conjunctivae/corneas clear. No icterus. No ptosis. Neck: Supple, no meningeal signs Oral: dentition fair, no thrush Cardiovascular: S1, S2 normal. Respiratory: Good air entry, clear to auscultation bilaterally GI: Soft, non-tender; bowel sounds normal. No peritoneal signs. Musculoskeletal: Right forefoot circular wound. Skin: No rash or abscess Hem/Lymphatic: No palpable cervical or supraclavicular nodes. No lymphangitis Psych: Mood ok. Affect normal Neurological: Awake, alert, oriented. No gross abnormality - Constitutional Vitals: Vital Signs Temp Pulse Resp BP Pulse Ox 99.2 F 76 16 129/68 94 07/19/20 06:16 07/19/20 09:39 07/19/20 06:16 07/19/20 09:39 07/19/20 06:16 Temperature -Last 24 Hours Temperature 99.2 F Temperature 98.0 F Temperature 100.8 F Temperature 98.6 F - Labs CBC & Chem 7: 07/19/20 06:59 07/19/20 06:59 Labs: Abnormal lab results 07/18/20 07/18/20 07/18/20 Range/Units 12:18 17:36 22:27 WBC (4.5-11.0) K/mm3 RBC (3.65-5.03) M/mm3 Hgb (11.8-15.2) gm/dl Hct (35.5-45.6) % Sodium (137-145) mmol/L Chloride (98-107) mmol/L Creatinine (0.8-1.3) mg/dL Glucose (75-100) mg/dL POC Glucose 224 H 166 H 159 H (70-105) 07/19/20 07/19/20 07/19/20 Range/Units 06:59 06:59 07:54 WBC 11.5 H (4.5-11.0) K/mm3 RBC 3.43 L (3.65-5.03) M/mm3 Hgb 9.5 L (11.8-15.2) gm/dl Hct 29.0 L (35.5-45.6) % Sodium 134 L (137-145) mmol/L Chloride 97.6 L (98-107) mmol/L Creatinine 0.6 L (0.8-1.3) mg/dL Glucose 149 H (75-100) mg/dL POC Glucose 142 H (70-105) 07/19/20 Range/Units 11:36 WBC (4.5-11.0) K/mm3 RBC (3.65-5.03) M/mm3 Hgb (11.8-15.2) gm/dl Hct (35.5-45.6) % Sodium (137-145) mmol/L Chloride (98-107) mmol/L Creatinine (0.8-1.3) mg/dL Glucose (75-100) mg/dL POC Glucose 201 H (70-105)
[2020-07-19] MEDS: ACETAMINOPHEN 325 MG TAB PO PRN (12:40)
[2020-07-19] MEDS: VANCOMYCIN 2,000 MG in SODIUM CHLORIDE 0.9% 500 ML 500 ML IV SCH ×2 (12:40→22:19)
[2020-07-19] MEDS: HYDROmorphone 1 MG/1 ML INJ IV PRN (23:33)
[2020-07-20] MEDS: HYDROmorphone 1 MG/1 ML INJ IV PRN ×5 (05:01→21:47)
[2020-07-20] MEDS: AMPICILLIN/SULBACTA 3GM/100ML 3 GM/100 ML BAG IV SCH ×4 (05:01→19:35)
[2020-07-20 05:35] LABS: Hematocrit 28.5 % (35.5-45.6); Hemoglobin 9.4 gm/dl (11.8-15.2); Mean Corpuscular HGB Conc 33 % (32-34); Mean Corpuscular Volume 84 fl (84-94); Platelet Count 338 K/mm3 (140-440); Red Blood Count 3.41 M/mm3 (3.65-5.03); Red Cell Distribution Width 15.3 % (13.2-15.2)
[2020-07-20 05:53] LABS: Blood Urea Nitrogen 10 mg/dL (9-20); Calcium 8.2 mg/dL (8.4-10.2); Hemolysis Index 2
[2020-07-20 06:05] LABS: BUN/Creatinine Ratio 17
--- NOTE | 2020-07-20 09:38 | Progress Note ---
Assessment and Plan Day #2 Right foot looks better Perforated ulcer on the bottom of the foot Continue IV antibiotics - Patient Problems (1) Cellulitis of right foot Current Visit: Yes Status: Acute Plan to address problem: Patient initiated on IV Unasyn and vancomycin pending wound cultures Patient refuses TMA Patient for wound debridement tomorrow (2) Diabetic foot ulcer Current Visit: Yes Status: Acute Qualifiers: Diabetic foot ulcer location: midfoot Diabetes mellitus type: type 2 Laterality: right Non-pressure ulcer stage: with fat layer exposed Qualified Code(s): E11.621 - Type 2 diabetes mellitus with foot ulcer; L97.412 - Non-pre ssure chronic ulcer of right heel and midfoot with fat layer exposed Plan to address problem: Wound care and antibiotic ID consult appreciated Continue IV Unasyn and vancomycin (3) Uncontrolled diabetes mellitus with hyperglycemia Current Visit: Yes Status: Chronic Qualifiers: Diabetes mellitus type: type 2 Qualified Code(s): E11.65 - Type 2 diabetes mellitus with hyperglycemia Plan to address problem: Check hemoglobin A1c. 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 Patient also has a small ulcer on the bottom of the feet about 1.5 cm 9 x 1.5 cm which is circular appreciated. Warm to touch. And also running fever. Patient states his blood glucose levels are very within 203 100. Patient is on oral hypoglycemics 07/16 patient is alert and oriented and feels better. He offers no specific complaints except pain in the right foot which he states is well controlled with pain medication He denies any chest pain or shortness of breath Denies any fever or chills but has low-grade temp T-max 100.2 today. Denies cough, nausea or abdominal pain Lab results reviewed 07/17: Tmax of 99.9, last night was upto 102. Continue management, follow cultures, obtain AM labs. ID consulted 07/18: MRI findings indicative of osteomyelitis with gas. Consulted surgery immediately. Patient was evaluated by them recommended to have TMA of some of the toes. Patient refused nevertheless will undergo debridement. He understands that 6 weeks of antibiotic therapy may fail due to severity of the disease. We will continue aggressive management of blood sugar and his underlying diabetes and also recommend weight loss. PICC line ordered for 6 weeks of antibiotic therapy 07/19/20 Continue IV antibiotics Patient has osteomyelitis TMA was recommended but patient refused Objective - Constitutional Vitals: Vital Signs - 12hr 07/19/20 07/20/20 22:20 05:08 Temperature 98.5 F 98.0 F Pulse Rate 82 78 Respiratory 18 18 Rate Blood Pressure 154/89 148/91 O2 Sat by Pulse 97 96 Oximetry General appearance: Present: no acute distress, well-nourished - EENT Eyes: PERRL, EOM intact ENT: hearing intact, clear oral mucosa Ears: bilateral: normal - Neck Neck: supple, normal ROM - Respiratory Respiratory effort: normal Respiratory: bilateral: CTA - Breasts Breasts: normal - Cardiovascular Rhythm: regular Heart Sounds: Present: S1 & S2. Absent: gallop, rub Extremities: pulses intact, No edema, normal color, Full ROM - Gastrointestinal General gastrointestinal: Present: soft, non-tender, non-distended, normal bowel sounds - Genitourinary Male genitourinary: normal - Integumentary Integumentary: clear, warm, dry - Musculoskeletal Musculoskeletal: 1, strength equal bilaterally - Neurologic Neurologic: moves all extremities - Psychiatric Psychiatric: memory intact, appropriate mood/affect, intact judgment & insight - Labs CBC & Chem 7: 07/22/20 07:47 07/22/20 22:45 Labs: Abnormal lab results 07/19/20 07/19/20 07/19/20 Range/Units 11:36 14:52 17:17 WBC (4.5-11.0) K/mm3 RBC (3.65-5.03) M/mm3 Hgb (11.8-15.2) gm/dl Hct (35.5-45.6) % RDW (13.2-15.2) % Sodium (137-145) mmol/L Chloride (98-107) mmol/L Creatinine (0.8-1.3) mg/dL Glucose (75-100) mg/dL POC Glucose 201 H 193 H 171 H (70-105) Calcium (8.4-10.2) mg/dL 07/19/20 07/20/20 07/20/20 Range/Units 22:32 04:21 04:21 WBC 13.2 H (4.5-11.0) K/mm3 RBC 3.41 L (3.65-5.03) M/mm3 Hgb 9.4 L (11.8-15.2) gm/dl Hct 28.5 L (35.5-45.6) % RDW 15.3 H (13.2-15.2) % Sodium 134 L (137-145) mmol/L Chloride 97.7 L (98-107) mmol/L Creatinine 0.6 L (0.8-1.3) mg/dL Glucose 124 H (75-100) mg/dL POC Glucose 150 H (70-105) Calcium 8.2 L (8.4-10.2) mg/dL 07/20/20 Range/Units 07:53 WBC (4.5-11.0) K/mm3 RBC (3.65-5.03) M/mm3 Hgb (11.8-15.2) gm/dl Hct (35.5-45.6) % RDW (13.2-15.2) % Sodium (137-145) mmol/L Chloride (98-107) mmol/L Creatinine (0.8-1.3) mg/dL Glucose (75-100) mg/dL POC Glucose 123 H (70-105) Calcium (8.4-10.2) mg/dL
[2020-07-20] MEDS: INSULIN LISPRO 100 UNIT/ML VIAL 3 mL SUB-Q SCH ×4 (10:06→22:45)
[2020-07-20] MEDS: INSULIN NPH/REGULAR 70/30 INJ SUB-Q SCH ×3 (10:06→19:37)
[2020-07-20] MEDS: oxyCODONE /ACETAMINOPHEN 5-325MG TAB PO PRN ×2 (10:22→19:35)
[2020-07-20] MEDS: FAMOTIDINE 20 MG TAB PO SCH ×2 (10:22→21:45)
[2020-07-20] MEDS: HEPARIN 5,000 UNIT/1 ML VIAL SUB-Q SCH ×2 (10:22→21:45)
[2020-07-20] MEDS: LISINOPRIL 10 MG TAB PO SCH (10:23)
[2020-07-20] MEDS: VANCOMYCIN 2,000 MG in SODIUM CHLORIDE 0.9% 500 ML 500 ML IV SCH ×2 (11:50→22:48)
--- NOTE | 2020-07-20 12:24 | Progress Note ---
Assessment and Plan Cultures: Blood culture 07/14/2020 pending A/P: 45-year-old man past medical history diabetes admitted with right foot wound #Acute sepsis: Present with fevers and leukocytosis. Secondary to infected foot wound. #Right foot osteomyelitis with abscess: Due to poorly controlled diabetes. Given the present admission likely infected. Podiatry recommending amputation, however patient refuses. Will arrange for antibiotics #Type 2 diabetes: Poorly controlled #Obesity: BMI 39 Recs: -Continue vancomycin and Unasyn for now. -For debridement in OR. Please obtain cultures from abscess. -We will plan on 6 weeks of antibiotics guided by culture results. -Follow-up wound care recommendations Thank you for the consult, we will continue to follow. Andrew Hendrickson MD [facility] ([facility]) M: [phone] O: [phone] F: [phone] Subjective Date of service: 07/20/20 Principal diagnosis: Right foot cellulitis and perforated ulcer Interval history: Afebrile, white count is elevated at 13.2. Blood cultures to confirm negative. For debridement today. Objective - Exam Narrative Exam: Physical Exam: Constitutional: Alert, cooperative, obese male. No acute distress Head, Ears, Nose: Normocephalic, atraumatic. Eyes: Conjunctivae/corneas clear. No icterus. No ptosis. Neck: Supple, no meningeal signs Oral: dentition fair, no thrush Cardiovascular: S1, S2 normal. Respiratory: Good air entry, clear to auscultation bilaterally GI: Soft, non-tender; bowel sounds normal. No peritoneal signs. Musculoskeletal: Right forefoot circular wound. Skin: No rash or abscess Hem/Lymphatic: No palpable cervical or supraclavicular nodes. No lymphangitis Psych: Mood ok. Affect normal Neurological: Awake, alert, oriented. No gross abnormality - Constitutional Vitals: Vital Signs Temp Pulse Resp BP Pulse Ox 98.0 F 74 18 154/80 96 07/20/20 05:08 07/20/20 10:23 07/20/20 05:08 07/20/20 10:23 07/20/20 05:08 Temperature -Last 24 Hours Temperature 98.0 F Temperature 98.5 F Temperature 98.7 F - Labs CBC & Chem 7: 07/20/20 04:21 07/20/20 04:21 Labs: Abnormal lab results 07/19/20 07/19/20 07/19/20 Range/Units 14:52 17:17 22:32 WBC (4.5-11.0) K/mm3 RBC (3.65-5.03) M/mm3 Hgb (11.8-15.2) gm/dl Hct (35.5-45.6) % RDW (13.2-15.2) % Sodium (137-145) mmol/L Chloride (98-107) mmol/L Creatinine (0.8-1.3) mg/dL Glucose (75-100) mg/dL POC Glucose 193 H 171 H 150 H (70-105) Calcium (8.4-10.2) mg/dL 07/20/20 07/20/20 07/20/20 Range/Units 04:21 04:21 07:53 WBC 13.2 H (4.5-11.0) K/mm3 RBC 3.41 L (3.65-5.03) M/mm3 Hgb 9.4 L (11.8-15.2) gm/dl Hct 28.5 L (35.5-45.6) % RDW 15.3 H (13.2-15.2) % Sodium 134 L (137-145) mmol/L Chloride 97.7 L (98-107) mmol/L Creatinine 0.6 L (0.8-1.3) mg/dL Glucose 124 H (75-100) mg/dL POC Glucose 123 H (70-105) Calcium 8.2 L (8.4-10.2) mg/dL 07/20/20 Range/Units 11:20 WBC (4.5-11.0) K/mm3 RBC (3.65-5.03) M/mm3 Hgb (11.8-15.2) gm/dl Hct (35.5-45.6) % RDW (13.2-15.2) % Sodium (137-145) mmol/L Chloride (98-107) mmol/L Creatinine (0.8-1.3) mg/dL Glucose (75-100) mg/dL POC Glucose 148 H (70-105) Calcium (8.4-10.2) mg/dL
[2020-07-20] MEDS ORDERED: ONDANSETRON 4 MG/2 ML INJ IV PRN (12:25)
--- NOTE | 2020-07-20 12:25 | Anesthesia Day of Surgery ---
Anesthesia Day of Surgery - Day of Surgery Patient Examined: Yes Patient H&P Reviewed: Yes Patient is NPO: Yes
--- NOTE | 2020-07-20 12:25 | Anesthesia Consultation ---
Anesthesia Consult and Med Hx Date of service: 07/20/20 - Airway Anesthetic Teeth Evaluation: Good (upper incisor implants) ROM Head & Neck: Adequate Mental/Hyoid Distance: Adequate Mallampati Class: Class III Intubation Access Assessment: Possibly Difficult - Pulmonary Exam CTA: Yes - Cardiac Exam Cardiac Exam: RRR - Pre-Operative Health Status ASA Pre-Surgery Classification: ASA3 Proposed Anesthetic Plan: General - Pulmonary Hx Smoking: Yes (former smoker 1 PPD; quit 4 yrs ago) Hx Respiratory Symptoms: No - Cardiovascular System Hx Hypertension: No (denies prior diagnosis but BP elevated this admission) Hx Heart Attack/AMI: No Hx Percutaneous Transluminal Coronary Angioplasty (PTCA): No Hx Cardia Arrhythmia: No Hx Peripheral Vascular Disease: No - Central Nervous System CVA: No - Gastrointestinal Hx Gastroesophageal Reflux Disease: No - Endocrine Hx Renal Disease: No Hx Liver Disease: No Hx Insulin Dependent Diabetes: Yes (poorly controlled) Hx Thyroid Disease: No - Hematic Hx Anemia: Yes - Other Systems Hx Obesity: Yes (BMI 39) - Additional Comments Anesthesia Medical History Comments: No prior GA or FHx anesthetic complications.
[2020-07-20] MEDS: SODIUM CHLORIDE 0.9% 1000 ML 1,000 ML IV SCH ×2 (12:40→21:48)
[2020-07-20] MEDS: MIDAZOLAM 2 MG/2 ML INJ IV NR ×2 (12:50→14:28)
[2020-07-20] MEDS: fentaNYL 100 MCG/2 ML INJ IV PRN ×2 (12:55→13:15)
[2020-07-20] MEDS ORDERED: HYDROmorphone 1 MG/1 ML INJ ONE (14:42)
[2020-07-20] MEDS ORDERED: propofoL 200 MG/20 ML VIAL IV ONE (14:42)
--- NOTE | 2020-07-20 14:50 | Progress Note ---
Assessment and Plan Day #2 Right foot looks better Perforated ulcer on the bottom of the foot Continue IV antibiotics - Patient Problems (1) Cellulitis of right foot Current Visit: Yes Status: Acute Plan to address problem: Patient initiated on IV Unasyn and vancomycin pending wound cultures (2) Diabetic foot ulcer Current Visit: Yes Status: Acute Qualifiers: Diabetic foot ulcer location: midfoot Diabetes mellitus type: type 2 Laterality: right Non-pressure ulcer stage: with fat layer exposed Qualified Code(s): E11.621 - Type 2 diabetes mellitus with foot ulcer; L97.412 - Non- pressure chronic ulcer of right heel and midfoot with fat layer exposed Plan to address problem: Wound care and antibiotic ID consult requested patient may need PICC line IV antibiotics Patient for debridement today (3) Uncontrolled diabetes mellitus with hyperglycemia Current Visit: Yes Status: Chronic Qualifiers: Diabetes mellitus type: type 2 Qualified Code(s): E11.65 - Type 2 diabetes mellitus with hyperglycemia Plan to address problem: Check hemoglobin A1c. 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 Patient also has a small ulcer on the bottom of the feet about 1.5 cm 9 x 1.5 cm which is circular appreciated. Warm to touch. And also running fever. Patient states his blood glucose levels are very within 203 100. Patient is on oral hypoglycemics 07/16 patient is alert and oriented and feels better. He offers no specific complaints except pain in the right foot which he states is well controlled with pain medication He denies any chest pain or shortness of breath Denies any fever or chills but has low-grade temp T-max 100.2 today. Denies cough, nausea or abdominal pain Lab results reviewed 07/17: Tmax of 99.9, last night was upto 102. Continue management, follow c ultures, obtain AM labs. ID consulted 07/18: MRI findings indicative of osteomyelitis with gas. Consulted surgery immediately. Patient was evaluated by them recommended to have TMA of some of the toes. Patient refused nevertheless will undergo debridement. He understands that 6 weeks of antibiotic therapy may fail due to severity of the disease. We will continue aggressive management of blood sugar and his underlying diabetes and also recommend weight loss. PICC line ordered for 6 weeks of antibiotic therapy 07/19/2020 continue IV antibiotics 07/20/2020 patient for debridement today no TMA because of the patient's refusal Objective - Constitutional Vitals: Vital Signs - 12hr 07/20/20 07/20/20 07/20/20 05:08 10:23 10:24 Temperature 98.0 F Pulse Rate 78 74 Respiratory 18 Rate Blood Pressure 148/91 154/80 154/80 O2 Sat by Pulse 96 Oximetry 07/20/20 07/20/20 07/20/20 11:23 12:05 12:55 Temperature 98.0 F 97.4 F L Pulse Rate 71 69 Respiratory 16 18 18 Rate Blood Pressure 146/73 142/79 O2 Sat by Pulse 98 96 Oximetry 07/20/20 13:15 Temperature Pulse Rate Respiratory 18 Rate Blood Pressure O2 Sat by Pulse Oximetry General appearance: Present: no acute distress, well-nourished - EENT Eyes: PERRL, EOM intact ENT: hearing intact, clear oral mucosa Ears: bilateral: normal - Neck Neck: supple, normal ROM - Respiratory Respiratory effort: normal Respiratory: bilateral: CTA - Breasts Breasts: normal - Cardiovascular Rhythm: regular Heart Sounds: Present: S1 & S2. Absent: gallop, rub Extremities: pulses intact, No edema, normal color, Full ROM - Gastrointestinal General gastrointestinal: Present: soft, non-tender, non-distended, normal bowel sounds - Genitourinary Male genitourinary: normal - Integumentary Integumentary: clear, warm, dry - Musculoskeletal Musculoskeletal: 1, strength equal bilaterally - Neurologic Neurologic: moves all extremities - Psychiatric Psychiatric: memory intact, appropriate mood/affect, intact judgment & insight - Labs CBC & Chem 7: 07/22/20 07:47 07/22/20 22:45 Labs: Abnormal lab results 07/19/20 07/19/20 07/20/20 Range/Units 17:17 22:32 04:21 WBC 13.2 H (4.5-11.0) K/mm3 RBC 3.41 L (3.65-5.03) M/mm3 Hgb 9.4 L (11.8-15.2) gm/dl Hct 28.5 L (35.5-45.6) % RDW 15.3 H (13.2-15.2) % Sodium (137-145) mmol/L Chloride (98-107) mmol/L Creatinine (0.8-1.3) mg/dL Glucose (75-100) mg/dL POC Glucose 171 H 150 H (70-105) Calcium (8.4-10.2) mg/dL 07/20/20 07/20/20 07/20/20 Range/Units 04:21 07:53 11:20 WBC (4.5-11.0) K/mm3 RBC (3.65-5.03) M/mm3 Hgb (11.8-15.2) gm/dl Hct (35.5-45.6) % RDW (13.2-15.2) % Sodium 134 L (137-145) mmol/L Chloride 97.7 L (98-107) mmol/L Creatinine 0.6 L (0.8-1.3) mg/dL Glucose 124 H (75-100) mg/dL POC Glucose 123 H 148 H (70-105) Calcium 8.2 L (8.4-10.2) mg/dL 07/20/20 Range/Units 12:52 WBC (4.5-11.0) K/mm3 RBC (3.65-5.03) M/mm3 Hgb (11.8-15.2) gm/dl Hct (35.5-45.6) % RDW (13.2-15.2) % Sodium (137-145) mmol/L Chloride (98-107) mmol/L Creatinine (0.8-1.3) mg/dL Glucose (75-100) mg/dL POC Glucose 153 H (70-105) Calcium (8.4-10.2) mg/dL
[2020-07-20] MEDS ORDERED: BUPIVACAINE-EPINEPHRINE/PF 0.5%-1:200,000 (30 ML) VIAL INFILTRATI ONE (14:51)
[2020-07-20] MEDS ORDERED: SODIUM CHLORIDE 0.9% IRR 1,500 ML BOTTLE IR ONE (15:13)
[2020-07-20] MEDS ORDERED: LIDOCAINE MPF (2%) 20 MG/1 ML VIAL 5 ML ONE (15:39)
[2020-07-20] MEDS ORDERED: ONDANSETRON 4 MG/2 ML INJ ONE (15:39)
--- NOTE | 2020-07-20 15:40 | Procedure Note ---
Date of procedure: 07/20/20 Pre-op diagnosis: Right foot abscess Post-op diagnosis: same Procedure: I&D of right foot abscess Description of procedure: Pt was placed supine on the OR table. After adequate general anesthesia, the right foot was prepped and draped. A hemostat was used to probe the draining plantar ulcer and the course of the abscess tract identified. The tract was unroofed proximally to the medial aspect of the mid- foot and distally to interspace between the 3rd and 4th toes and then slightly onto the dorsal aspect of the distal foot. C&S of drained pus was obtained. The deep aspect of the tract was deep to the plantar musculature. Wound was copiously irrigated with warm saline and was packed open with a dry Kerlix roll followed by a Kerlix and then Coban wrap. Pt tolerated the procedure well. He was taken to PACU in stable condition. Anesthesia: BRIGID Surgeon: DIPTI BUTCHER Estimated blood loss: 50-100ml Pathology: list (C&S) Specimen disposition: to lab Condition: stable Disposition: PACU
--- NOTE | 2020-07-20 16:33 | Post Anesthesia Evaluation ---
- Post Anesthesia Evaluation Patient Participated: Yes Airway Patent: Yes Stable Respiratory Function: Yes Nausea/Vomiting: No Temp > 96.8F: Yes Pain Manageable: Yes Adequeate Hydration: Yes Anesthesia Complications: No Other Comments: Patient provided with incentive spirometer and instructed on use. Demonstrated excellent effort.
[2020-07-21] MEDS: HYDROmorphone 1 MG/1 ML INJ IV PRN ×4 (00:31→17:30)
[2020-07-21] MEDS: AMPICILLIN/SULBACTA 3GM/100ML 3 GM/100 ML BAG IV SCH ×4 (01:53→17:26)
[2020-07-21] MEDS: HEPARIN 5,000 UNIT/1 ML VIAL SUB-Q SCH ×2 (09:05→21:29)
[2020-07-21] MEDS: LISINOPRIL 10 MG TAB PO SCH (09:06)
[2020-07-21] MEDS: oxyCODONE /ACETAMINOPHEN 5-325MG TAB PO PRN ×2 (09:06→21:32)
[2020-07-21] MEDS: FAMOTIDINE 20 MG TAB PO SCH ×2 (09:07→21:27)
[2020-07-21] MEDS: INSULIN NPH/REGULAR 70/30 INJ SUB-Q SCH ×2 (09:08→17:25)
[2020-07-21] MEDS: INSULIN LISPRO 100 UNIT/ML VIAL 3 mL SUB-Q SCH ×4 (09:10→22:38)
[2020-07-21] MEDS: VANCOMYCIN 2,000 MG in SODIUM CHLORIDE 0.9% 500 ML 500 ML IV SCH ×2 (10:20→23:04)
--- NOTE | 2020-07-21 10:56 | Progress Note ---
Assessment and Plan - Patient Problems (1) Foot abscess, right Current Visit: Yes Status: Acute Plan to address problem: 1) Satisfactory course 2) Begin dressing changes with Dakin's. 3) Check CBC tomorrow 4) F/u on wound cultures 5) Informed pt that his condition is limb threatening. Subjective Date of service: 07/21/20 Patient Reports: Positive: no new complaints, feels better, pain is less Objective Vital Signs - 12hr 07/21/20 07/21/20 04:28 04:35 Temperature 99.0 F Pulse Rate 70 Respiratory 18 18 Rate Blood Pressure 127/74 O2 Sat by Pulse 91 94 Oximetry - Integumentary other (Right foot dressing taken down. Wound is fairly clean and hemostatic.) - Labs 07/20/20 04:21 07/20/20 04:21
[2020-07-21] MEDS ORDERED: SODIUM HYPOCHLORITE, DAKIN'S 1/2 STRENGTH (0.25%) 473 ML TOPICAL SOLN TP PRN (11:00)
[2020-07-21] MEDS: SODIUM CHLORIDE 0.9% 1000 ML 1,000 ML IV SCH (15:45)
[2020-07-22] MEDS: SODIUM CHLORIDE 0.9% 1000 ML 1,000 ML IV SCH ×3 (00:55→19:22)
[2020-07-22] MEDS: AMPICILLIN/SULBACTA 3GM/100ML 3 GM/100 ML BAG IV SCH ×4 (00:55→17:35)
[2020-07-22] MEDS: HYDROmorphone 1 MG/1 ML INJ IV PRN ×2 (02:12→15:48)
[2020-07-22 07:57] LABS: Basophils # (Auto) 0.1 K/mm3 (0.0-0.1); Basophils % (Auto) 0.6 % (0.0-1.8); Eosinophils # (Auto) 0.3 K/mm3 (0.0-0.4); Eosinophils % (Auto) 2.5 % (0.0-4.3); Hematocrit 28.5 % (35.5-45.6); Hemoglobin 9.5 gm/dl (11.8-15.2); Lymphocytes # (Auto) 3.1 K/mm3 (1.2-5.4); Lymphocytes % (Auto) 29.1 % (13.4-35.0); Mean Corpuscular HGB Conc 33 % (32-34); Mean Corpuscular Volume 84 fl (84-94); Monocytes # (Auto) 0.8 K/mm3 (0.0-0.8); Monocytes % (Auto) 7.5 % (0.0-7.3); Platelet Count 388 K/mm3 (140-440); Red Blood Count 3.38 M/mm3 (3.65-5.03); Red Cell Distribution Width 15.1 % (13.2-15.2)
[2020-07-22] MEDS: INSULIN LISPRO 100 UNIT/ML VIAL 3 mL SUB-Q SCH ×4 (08:45→22:41)
[2020-07-22] MEDS: LISINOPRIL 10 MG TAB PO SCH (09:24)
[2020-07-22] MEDS: FAMOTIDINE 20 MG TAB PO SCH ×2 (09:24→21:41)
[2020-07-22] MEDS: INSULIN NPH/REGULAR 70/30 INJ SUB-Q SCH ×2 (09:24→17:35)
[2020-07-22] MEDS: HEPARIN 5,000 UNIT/1 ML VIAL SUB-Q SCH ×2 (09:24→21:41)
[2020-07-22] MEDS: VANCOMYCIN 2,000 MG in SODIUM CHLORIDE 0.9% 500 ML 500 ML IV SCH ×2 (10:19→23:54)
--- NOTE | 2020-07-22 15:46 | Progress Note ---
Assessment and Plan Day #2 Right foot looks better Perforated ulcer on the bottom of the foot Continue IV antibiotics - Patient Problems (1) Cellulitis of right foot Current Visit: Yes Status: Acute Plan to address problem: Patient initiated on IV Unasyn and vancomycin pending wound cultures Patient is s/p debridement Patient refused TMA (2) Diabetic foot ulcer Current Visit: Yes Status: Acute Qualifiers: Diabetic foot ulcer location: midfoot Diabetes mellitus type: type 2 Laterality: right Non-pressure ulcer stage: with fat layer exposed Qualified Code(s): E11.621 - Type 2 diabetes mellitus with foot ulcer; L97.412 - 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 Patient also has a small ulcer on the bottom of the feet about 1.5 cm 9 x 1.5 cm which is circular appreciated. Warm to touch. And also running fever. Patient states his blood glucose levels are very within 203 100. Patient is on oral hypoglycemics 07/16 patient is alert and oriented and feels better. He offers no specific complaints except pain in the right foot which he states is well controlled with pain medication He denies any chest pain or shortness of breath Denies any fever or chills but has low-grade temp T-max 100.2 today. Denies cough, nausea or abdominal pain Lab results reviewed 07/17: Tmax of 99.9, last night was upto 102. Continue management, follow cultures, obtain AM labs. ID consulted 07/18: MRI findings indicative of osteomyelitis with gas. Consulted surgery immediately. Patient was evaluated by them recommended to have TMA of some of the toes. Patient refused nevertheless will undergo debridement. He understands that 6 weeks of antibiotic therapy may fail due to severity of the disease. We will continue aggressive management of blood sugar and his underlying diabetes and also recommend weight loss. PICC line ordered for 6 weeks of antibiotic therapy 07/19/2020 continue IV antibiotics 07/20/2020 patient for debridement today no TMA because of the patient's refusal 07/21/2020 patient is s/p debridement of the foot wound Continue IV antibiotics PICC line inserted 07/22/2020 Waiting for IV antibiotics to be arranged Will discuss with ID regarding oral Levaquin Objective - Constitutional Vitals: Vital Signs - 12hr 07/22/20 07/22/20 06:06 11:26 Temperature 97.9 F 97.6 F Pulse Rate 59 L 66 Respiratory 20 20 Rate Blood Pressure 124/73 147/84 O2 Sat by Pulse 98 96 Oximetry General appearance: Present: no acute distress, well-nourished - EENT Eyes: PERRL, EOM intact ENT: hearing intact, clear oral mucosa Ears: bilateral: normal - Neck Neck: supple, normal ROM - Respiratory Respiratory effort: normal Respiratory: bilateral: CTA - Breasts Breasts: normal - Cardiovascular Heart rate: 78 Rhythm: regular Heart Sounds: Present: S1 & S2. Absent: gallop, rub Extremities: pulses intact, No edema, normal color, Full ROM - Gastrointestinal General gastrointestinal: Present: soft, non-tender, non-distended, normal bowel sounds - Genitourinary Male genitourinary: normal - Integumentary Integumentary: clear, warm, dry - Musculoskeletal Musculoskeletal: 1, strength equal bilaterally - Neurologic Neurologic: moves all extremities - Psychiatric Psychiatric: memory intact, appropriate mood/affect, intact judgment & insight - Labs CBC & Chem 7: 07/22/20 07:47 07/22/20 22:45 Labs: Abnormal lab results 07/21/20 07/21/20 07/22/20 Range/Units 17:22 22:00 07:47 RBC 3.38 L (3.65-5.03) M/mm3 Hgb 9.5 L (11.8-15.2) gm/dl Hct 28.5 L (35.5-45.6) % [place] % (Auto) 7.5 H (0.0-7.3) % POC Glucose 123 H 68 L (70-105) 07/22/20 Range/Units 11:51 RBC (3.65-5.03) M/mm3 Hgb (11.8-15.2) gm/dl Hct (35.5-45.6) % [place] % (Auto) (0.0-7.3) % POC Glucose 139 H (70-105)
--- NOTE | 2020-07-22 15:47 | Progress Note ---
Assessment and Plan Day #2 Right foot looks better Perforated ulcer on the bottom of the foot Continue IV antibiotics - Patient Problems (1) Cellulitis of right foot Current Visit: Yes Status: Acute Plan to address problem: Patient initiated on IV Unasyn and vancomycin pending wound cultures Patient had debridement of the foot Continue IV antibiotics (2) Diabetic foot ulcer Current Visit: Yes Status: Acute Qualifiers: Diabetic foot ulcer location: midfoot Diabetes mellitus type: type 2 Laterality: right Non-pressure ulcer stage: with fat layer exposed Qualified Code(s): E11.621 - Type 2 diabetes mellitus with foot ulcer; L97.412 - Non-pr essure chronic ulcer of right heel and midfoot with fat layer exposed Plan to address problem: Wound care and antibiotic ID consult requested patient may need PICC line IV antibiotics (3) Uncontrolled diabetes mellitus with hyperglycemia Current Visit: Yes Status: Chronic Qualifiers: Diabetes mellitus type: type 2 Qualified Code(s): E11.65 - Type 2 diabetes mellitus with hyperglycemia Plan to address problem: Check hemoglobin A1c. 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 Patient also has a small ulcer on the bottom of the feet about 1.5 cm 9 x 1.5 cm which is circular appreciated. Warm to touch. And also running fever. Patient states his blood glucose levels are very within 203 100. Patient is on oral hypoglycemics 07/16 patient is alert and oriented and feels better. He offers no specific complaints except pain in the right foot which he states is well controlled with pain medication He denies any chest pain or shortness of breath Denies any fever or chills but has low-grade temp T-max 100.2 today. Denies cough, nausea or abdominal pain Lab results reviewed 07/17: Tmax of 99.9, last night was upto 102. Continue management, follow cultures, obtain AM labs. ID consulted 07/18: MRI findings indicative of osteomyelitis with gas. Consulted surgery immediately. Patient was evaluated by them recommended to have TMA of some of the toes. Patient refused nevertheless will undergo debridement. He unde rstands that 6 weeks of antibiotic therapy may fail due to severity of the disease. We will continue aggressive management of blood sugar and his underlying diabetes and also recommend weight loss. PICC line ordered for 6 weeks of antibiotic therapy 07/19/2020 continue IV antibiotics 07/20/2020 patient for debridement today no TMA because of the patient's refusal 07/21/2020 patient is s/p debridement of the foot wound Continue IV antibiotics PICC line inserted Objective - Constitutional Vitals: Vital Signs - 12hr 07/22/20 07/22/20 06:06 11:26 Temperature 97.9 F 97.6 F Pulse Rate 59 L 66 Respiratory 20 20 Rate Blood Pressure 124/73 147/84 O2 Sat by Pulse 98 96 Oximetry General appearance: Present: no acute distress, well-nourished - EENT Eyes: PERRL, EOM intact ENT: hearing intact, clear oral mucosa Ears: bilateral: normal - Neck Neck: supple, normal ROM - Respiratory Respiratory effort: normal Respiratory: bilateral: CTA - Breasts Breasts: normal - Cardiovascular Heart rate: 78 Rhythm: regular Heart Sounds: Present: S1 & S2. Absent: gallop, rub Extremities: pulses intact, No edema, normal color, Full ROM - Gastrointestinal General gastrointestinal: Present: soft, non-tender, non-distended, normal bowel sounds - Genitourinary Male genitourinary: normal - Integumentary Integumentary: clear, warm, dry - Musculoskeletal Musculoskeletal: 1, strength equal bilaterally - Neurologic Neurologic: moves all extremities - Psychiatric Psychiatric: memory intact, appropriate mood/affect, intact judgment & insight - Labs CBC & Chem 7: 07/22/20 07:47 07/22/20 22:45 Labs: Abnormal lab results 07/21/20 07/21/20 07/22/20 Range/Units 17:22 22:00 07:47 RBC 3.38 L (3.65-5.03) M/mm3 Hgb 9.5 L (11.8-15.2) gm/dl Hct 28.5 L (35.5-45.6) % [place] % (Auto) 7.5 H (0.0-7.3) % POC Glucose 123 H 68 L (70-105) 07/22/20 Range/Units 11:51 RBC (3.65-5.03) M/mm3 Hgb (11.8-15.2) gm/dl Hct (35.5-45.6) % [place] % (Auto) (0.0-7.3) % POC Glucose 139 H (70-105)
[2020-07-22] MEDS: oxyCODONE /ACETAMINOPHEN 5-325MG TAB PO PRN (19:21)
[2020-07-22 23:19] LABS: Blood Urea Nitrogen 7 mg/dL (9-20); Calcium 8.6 mg/dL (8.4-10.2); Hemolysis Index 0
[2020-07-22 23:25] LABS: BUN/Creatinine Ratio 12
[2020-07-23] MEDS: HYDROmorphone 1 MG/1 ML INJ IV PRN ×2 (00:03→19:01)
[2020-07-23] MEDS: AMPICILLIN/SULBACTA 3GM/100ML 3 GM/100 ML BAG IV SCH ×3 (00:53→12:19)
[2020-07-23] MEDS: INSULIN LISPRO 100 UNIT/ML VIAL 3 mL SUB-Q SCH ×4 (09:00→22:45)
[2020-07-23] MEDS: LISINOPRIL 10 MG TAB PO SCH (09:41)
[2020-07-23] MEDS: HEPARIN 5,000 UNIT/1 ML VIAL SUB-Q SCH ×2 (09:41→22:46)
[2020-07-23] MEDS: INSULIN NPH/REGULAR 70/30 INJ SUB-Q SCH ×2 (09:42→18:39)
[2020-07-23] MEDS: FAMOTIDINE 20 MG TAB PO SCH ×2 (09:42→22:44)
[2020-07-23] MEDS: VANCOMYCIN 2,000 MG in SODIUM CHLORIDE 0.9% 500 ML 500 ML IV SCH (10:03)
--- NOTE | 2020-07-23 13:24 | Progress Note ---
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 Patient also has a small ulcer on the bottom of the feet about 1.5 cm 9 x 1.5 cm which is circular appreciated. Warm to touch. And also running fever. Patient states his blood glucose levels are very within 203 100. Patient is on oral hypoglycemics 07/16 patient is alert and oriented and feels better. He offers no specific complaints except pain in the right foot which he states is well controlled with pain medication He denies any chest pain or shortness of breath Denies any fever or chills but has low-grade temp T-max 100.2 today. Denies cough, nausea or abdominal pain Lab results reviewed 07/17: Tmax of 99.9, last night was upto 102. Continue management, follow cultures, obtain AM labs. ID consulted 07/18: MRI findings indicative of osteomyelitis with gas. Consulted surgery immediately. Patient was evaluated by them recommended to have TMA of some of the toes. Patient refused nevertheless will undergo debridement. He understands that 6 weeks of antibiotic therapy may fail due to severity of the disease. We will continue aggressive management of blood sugar and his underlying diabetes and also recommend weight loss. PICC line ordered for 6 weeks of antibiotic therapy 07/19/2020 continue IV antibiotics 07/20/2020 patient for debridement today no TMA because of the patient's refusal 07/21/2020 patient is s/p debridement of the foot wound Continue IV antibiotics PICC line inserted 07/22/2020 Waiting for IV antibiotics to be arranged Will discuss with ID regarding oral Levaquin 07/23/18 Discharge planning in progress Objective - Constitutional Vitals: Vital Signs - 12hr 07/23/20 07/23/20 07/23/20 05:41 09:41 11:35 Temperature 98.3 F 98.8 F Pulse Rate 60 66 66 Respiratory 18 18 Rate Blood Pressure 145/84 155/87 158/91 O2 Sat by Pulse 97 95 Oximetry General appearance: Present: no acute distress, well-nourished - EENT Eyes: PERRL, EOM intact ENT: hearing intact, clear oral mucosa Ears: bilateral: normal - Neck Neck: supple, normal ROM - Respiratory Respiratory effort: normal Respiratory: bilateral: CTA - Breasts Breasts: normal - Cardiovascular Heart rate: 78 Rhythm: regular Heart Sounds: Present: S1 & S2. Absent: gallop, rub Extremities: pulses intact, No edema, normal color, Full ROM - Gastrointestinal General gastrointestinal: Present: soft, non-tender, non-distended, normal bowel sounds - Genitourinary Male genitourinary: normal - Integumentary Integumentary: clear, warm, dry - Musculoskeletal Musculoskeletal: 1, strength equal bilaterally - Neurologic Neurologic: moves all extremities - Psychiatric Psychiatric: memory intact, appropriate mood/affect, intact judgment & insight - Labs CBC & Chem 7: 07/22/20 07:47 07/22/20 22:45 Labs: Abnormal lab results 07/22/20 07/22/20 07/22/20 Range/Units 17:00 21:49 22:45 Sodium 134 L (137-145) mmol/L Chloride 97.3 L (98-107) mmol/L BUN 7 L (9-20) mg/dL Creatinine 0.6 L (0.8-1.3) mg/dL Glucose 194 H (75-100) mg/dL POC Glucose 109 H 182 H (70-105) 07/23/20 07/23/20 Range/Units 07:53 11:55 Sodium (137-145) mmol/L Chloride (98-107) mmol/L BUN (9-20) mg/dL Creatinine (0.8-1.3) mg/dL Glucose (75-100) mg/dL POC Glucose 130 H 199 H (70-105)
--- NOTE | 2020-07-23 13:47 | Progress Note ---
Assessment and Plan Cultures: Blood culture 07/14/2020 pending A/P: 45-year-old man past medical history diabetes admitted with right foot wound #Acute sepsis: Present with fevers and leukocytosis. Secondary to infected foot wound. #Right foot osteomyelitis with abscess: Due to poorly controlled diabetes. Given the present admission likely infected. Podiatry recommending amputation, however patient refuses. Will arrange for antibiotics #Type 2 diabetes: Poorly controlled #Obesity: BMI 39 Recs: -Stop vancomycin and Unasyn -Started ertapenem 1 g every 24 hours -Case management consulted for ertapenem 1 g every 24 hours until 08/31/2020. This may be cost prohibitive, as such it patient cannot afford would recommend levofloxacin 750 mg every 24 hours until the same date. Levofloxacin can be done oral, however given possibility of in vivo decreased sensitivity to fluoroquinolones on ESBL isolates, would prefer ertapenem. Will defer on pu tting PICC line in for now until antibiotics are selected. Thank you for the consult, we will continue to follow. Andrew Hendrickson MD [facility] ([facility]) M: [phone] O: [phone] F: [phone] Subjective Date of service: 07/23/20 Principal diagnosis: Right foot cellulitis and perforated ulcer Interval history: No acute changes. White count returned to normal and afebrile Objective - Exam Narrative Exam: Physical Exam: Constitutional: Alert, cooperative, obese male. Head, Ears, Nose: Normocephalic, atraumatic. Eyes: Conjunctivae/corneas clear. N Neck: Supple, no meningeal signs Oral: dentition fair, no thrush Cardiovascular: S1, S2 normal. Respiratory: Good air entry, clear to auscultation bilaterally GI: Soft, non-tender; bowel sounds normal. No peritoneal signs. Musculoskeletal: Right forefoot circular wound, dressed Skin: No rash or abscess Hem/Lymphatic: No palpable cervical or supraclavicular nodes. No lymphangitis Psych: Mood ok. Affect normal Neurological: Awake, alert, oriented. No gross abnormality - Constitutional Vitals: Vital Signs Temp Pulse Resp BP Pulse Ox 98.8 F 66 18 158/91 95 07/23/20 11:35 07/23/20 11:35 07/23/20 11:35 07/23/20 11:35 07/23/20 11:35 Temperature -Last 24 Hours Temperature 98.8 F Temperature 98.3 F Temperature 98.9 F Temperature 98.3 F - Labs CBC & Chem 7: 07/22/20 07:47 07/22/20 22:45 Labs: Abnormal lab results 07/22/20 07/22/20 07/22/20 Range/Units 17:00 21:49 22:45 Sodium 134 L (137-145) mmol/L Chloride 97.3 L (98-107) mmol/L BUN 7 L (9-20) mg/dL Creatinine 0.6 L (0.8-1.3) mg/dL Glucose 194 H (75-100) mg/dL POC Glucose 109 H 182 H (70-105) 07/23/20 07/23/20 Range/Units 07:53 11:55 Sodium (137-145) mmol/L Chloride (98-107) mmol/L BUN (9-20) mg/dL Creatinine (0.8-1.3) mg/dL Glucose (75-100) mg/dL POC Glucose 130 H 199 H (70-105)
[2020-07-23] MEDS: SODIUM CHLORIDE 0.9% 1000 ML 1,000 ML IV SCH (15:03)
[2020-07-23] MEDS: ERTAPENEM 1 GM in SODIUM CHLORIDE 0.9% 50 ML IV SCH (15:04)
[2020-07-24] MEDS: SODIUM CHLORIDE 0.9% 1000 ML 1,000 ML IV SCH (01:43)
[2020-07-24] MEDS: HYDROmorphone 1 MG/1 ML INJ IV PRN (03:54)
--- NOTE | 2020-07-24 06:34 | Event Note ---
Date: 07/23/20 Discharge planning issues Patient has right foot debridement near the great toes. Patient also has osteomyelitis. Patient refuses TMA. ID suggested Ertapenem IV for 6 weeks versus levofloxacin 750 mg p.o. daily. Patient is unfunded If case management can arrange for ertapenem which is the drug of choice patient can be discharged on levofloxacin 750 mg orally once a day for 6 weeks and follow-up with wound clinic as outpatient and also follow with ID. Also tight control of his blood glucose levels as outpatient. Insulin levels adjusted.
[2020-07-24] MEDS ORDERED: INSULIN NPH/REGULAR 70/30 INJ SUB-Q SCH (08:00)
[2020-07-24] MEDS: INSULIN LISPRO 100 UNIT/ML VIAL 3 mL SUB-Q SCH ×2 (09:49→12:55)
[2020-07-24] MEDS: FAMOTIDINE 20 MG TAB PO SCH (10:11)
[2020-07-24] MEDS: LISINOPRIL 10 MG TAB PO SCH (10:12)
[2020-07-24] MEDS: HEPARIN 5,000 UNIT/1 ML VIAL SUB-Q SCH (10:17)
[2020-07-24] MEDS: ERTAPENEM 1 GM in SODIUM CHLORIDE 0.9% 50 ML IV SCH (10:19)
--- NOTE | 2020-07-24 11:33 | Discharge Summary ---
Providers - Providers Date of Admission: 07/14/20 17:33 Date of discharge: 07/24/20 Attending physician: ALL GARDUNO 07/14/20 22:17 Consult to Wound/ET Nurse [CONS] Routine Reason For Exam: wound eval 07/16/20 16:33 Consult to Physician [CONS] Routine Comment: Consulting Provider: HECTOR SIBLEY Physician Instructions: Reason For Exam: diabetic foot ulcer/ fever 07/17/20 07:17 Consult to Dietitian/Nutrition [CONS] Routine Physician Instructions: Reason For Exam: Reason for Consult: Diet education 07/18/20 07:44 Consult to Physician [CONS] Routine Comment: Consulting Provider: DIPTI BUTCHER Physician Instructions: Reason For Exam: osteomylitis foot 07/19/20 11:20 Consult to PICC Line RN [CONS] Urgent Reason For Exam: foot cellulitis Type Line:: Midline 07/23/20 13:52 Consult to Case Management [CONS] Routine Services Needed at Discharge: Home Health Services Notified:: cm Phone number called:: [phone] Was contact made?: No Time called:: 14:14 Comment:: called and cm disconnect the call. unable to reach cm. Additional Physician Instructions: Andrew Sibley MD [facility] ([facility]) M: [phone] O: [phone] F: [phone] Outpatient parenteral antibiotic therapy orders Diagnosis: Rightfoot osteomyelitis Antibiotic administration: Ertapenem 1 g every 24 hours until 08/31/2020 Line: PICC Lab monitoring: CBC with differential, BUN, creatinine, LFTs, CRP once per week preferably on Thursday or Thursday Fax results to [phone] For critical labs, call office: [phone] Andrew Sibley Primary care physician: [employer]IST[employer] Hospitalization Condition: Fair Hospital course: 45-year-old male with history of poorly controlled diabetes 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 Patient also has a small ulcer on the bottom of the feet about 1.5 cm 9 x 1.5 cm which is circular appreciated. Warm to touch. And also running fever. Patient states his blood glucose levels are very within 203 100. Patient is on oral hypoglycemics 07/16 patient is alert and oriented and feels better. He offers no specific complaints except pain in the right foot which he states is well controlled with pain medication He denies any chest pain or shortness of breath Denies any fever or chills but has low-grade temp T-max 100.2 today. Denies cough, nausea or abdominal pain Lab results reviewed 07/17: Tmax of 99.9, last night was upto 102. Continue management, follow cultures, obtain AM labs. ID consulted 07/18: MRI findings indicative of osteomyelitis with gas. Consulted surgery immediately. Patient was evaluated by them recommended to have TMA of some of the toes. Patient refused nevertheless will undergo debridement. He understands that 6 weeks of antibiotic therapy may fail due to severity of the disease. We will continue aggressive management of blood sugar and his underlying diabetes and also recommend weight loss. PICC line ordered for 6 weeks of antibiotic therapy 07/19/2020 continue IV antibiotics 07/20/2020 patient for debridement today no TMA because of the patient's refusal 07/21/2020 patient is s/p debridement of the foot wound Continue IV antibiotics PICC line inserted 07/22/2020 Waiting for IV antibiotics to be arranged Will discuss with ID regarding oral Levaquin 07/23/2020 Discharge planning in progress 07/24/2020. Patient will be discharged home on PO levaquin as per ID due to cost and insurance. He will follow up with ID and podiatry in the office. 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 (4) Foot abscess, right Status: Acute Core Measure Documentation - Palliative Care Palliative Care/ Comfort Measures: Not Applicable - Core Measures Any of the following diagnoses?: none Exam - Constitutional Vitals: Temp Pulse Resp BP Pulse Ox 98.0 F 60 17 151/90 95 07/24/20 04:20 07/24/20 10:12 07/24/20 04:24 07/24/20 10:12 07/24/20 04:20 General appearance: Present: no acute distress, well-nourished - EENT Eyes: Present: PERRL ENT: hearing intact, clear oral mucosa - Neck Neck: Present: supple, normal ROM - Respiratory Respiratory effort: normal Respiratory: bilateral: CTA - Cardiovascular Heart Sounds: Present: S1 & S2. Absent: rub, click - Extremities Extremities: abnormal (Right foot dressing intact and clean) Peripheral Pulses: within normal limits - Abdominal General gastrointestinal: Present: soft, non-tender, non-distended, normal bowel sounds Male genitourinary: Present: normal - Integumentary Integumentary: Present: clear, warm, dry - Musculoskeletal Musculoskeletal: gait normal, strength equal bilaterally - Psychiatric Psychiatric: appropriate mood/affect, intact judgment & insight - Neurologic Neurologic: CNII-XII intact, moves all extremities Plan Activity: no restrictions Diet: diabetic Additional Instructions: Continue Levaquin 750 mg daily until 08/31. Follow-up with infectious disease and surgery in the office. Continue medications as ordered Follow up with: PRIMARY CARE, [Primary Care Provider] - 3-5 Days HECTOR SIBLEY MD [Staff Physician] - 7 Days DIPTI BUTCHER MD [Staff Physician] - 7 Days Prescriptions: levoFLOXacin [Levaquin] 750 mg PO QDAY #38 tablet metFORMIN 850 mg PO TID #90 Insulin NPH/Regular [NovoLIN 70/30] 27 unit SUB-Q BIDDIAB #20 ml oxyCODONE /ACETAMINOPHEN [Percocet 5/325 mg] 1 tab PO Q6H PRN #14 tablet PRN Reason: Pain, Moderate (4-6) lisinopriL [Zestril TAB] 10 mg PO QDAY #30 tablet
--- NOTE | 2020-07-24 12:16 | Progress Note ---
Assessment and Plan Cultures: Blood culture 07/14/2020 pending A/P: 45-year-old man past medical history diabetes admitted with right foot wound #Acute sepsis: Present with fevers and leukocytosis. Secondary to infected foot wound. #Right foot osteomyelitis with abscess: Due to poorly controlled diabetes. Given the present admission likely infected. Podiatry recommending amputation, however patient refuses. Will arrange for antibiotics #Type 2 diabetes: Poorly controlled #Obesity: BMI 39 Recs: -Stop vancomycin and Unasyn -Started ertapenem 1 g every 24 hours -To be discharged with p.o. levofloxacin 750 mg every 24 hours until 08/31/2020, as patient unable to afford IV ertapenem -Follow-up in my clinic in 3 to 4 weeks. -Ongoing risk of potential treatment failure and need for amputation. Thank you for the consult, we will continue to follow. Andrew Hendrickson MD [facility] ([facility]) M: [phone] O: [phone] F: [phone] Subjective Date of service: 07/24/20 Principal diagnosis: Right foot cellulitis and perforated ulcer Interval history: Afebrile, no acute changes. Patient to be discharged today with p.o. Levaquin due to funding issues. Objective - Exam Narrative Exam: Physical Exam: Constitutional: Alert, cooperative, obese male. Head, Ears, Nose: Normocephalic, atraumatic. Eyes: Conjunctivae/corneas clear. N Neck: Supple, no meningeal signs Oral: dentition fair, no thrush Cardiovascular: S1, S2 normal. Respiratory: Good air entry, clear to auscultation bilaterally GI: Soft, non-tender; bowel sounds normal. No peritoneal signs. Musculoskeletal: Right forefoot circular wound, dressed Skin: No rash or abscess Hem/Lymphatic: No palpable cervical or supraclavicular nodes. No lymphangitis Psych: Mood ok. Affect normal Neurological: Awake, alert, oriented. No gross abnormality - Constitutional Vitals: Vital Signs Temp Pulse Resp BP Pulse Ox 98.0 F 60 17 151/90 95 07/24/20 04:20 07/24/20 10:12 07/24/20 04:24 07/24/20 10:12 07/24/20 04:20 Temperature -Last 24 Hours Temperature 98.0 F Temperature 98.5 F Temperature 98.6 F - Labs CBC & Chem 7: 07/22/20 07:47 07/22/20 22:45 Labs: Abnormal lab results 07/23/20 07/23/20 07/23/20 Range/Units 11:55 18:14 21:03 POC Glucose 199 H 122 H 131 H (70-105) 07/24/20 Range/Units 07:36 POC Glucose 118 H (70-105)
[2020-07-24 12:54] VITALS: BP 152/83
== END 2020-07-24 16:19 | disposition home or self-care (01) | DRG 862 ==
LOC: ED 11:22 → 3A 17:33
PROVIDERS: ADMIT Internal Medicine; ATTEND Internal Medicine
PROC: 02HV33Z Insertion of Infusion Device into Superior Vena Cava, Percutaneous Approach (ICD-10-PCS; 2020-07-19)
PROC: B548ZZA Ultrasonography of Superior Vena Cava, Guidance (ICD-10-PCS; 2020-07-19)
PROC: 0Y9M3ZZ Drainage of Right Foot, Percutaneous Approach (ICD-10-PCS; principal; 2020-07-20)
DX: T81.49XA Infection following a procedure, other surgical site, initial encounter (principal); A41.9 Sepsis, unspecified organism; M86.8X7 Other osteomyelitis, ankle and foot; L97.412 Non-pressure chronic ulcer of right heel and midfoot with fat layer exposed; L03.115 Cellulitis of right lower limb; L02.611 Cutaneous abscess of right foot; E11.621 Type 2 diabetes mellitus with foot ulcer; E11.69 Type 2 diabetes mellitus with other specified complication; E11.65 Type 2 diabetes mellitus with hyperglycemia; Z82.49 Family history of ischemic heart disease and other diseases of the circulatory system; E66.9 Obesity, unspecified; Z68.39 Body mass index [BMI] 39.0-39.9, adult; D64.9 Anemia, unspecified; Y83.8 Other surgical procedures as the cause of abnormal reaction of the patient, or of later complication, without mention of misadventure at the time of the procedure; Y92.89 Other specified places as the place of occurrence of the external cause
CPT/HCPCS: 36415; 80048; 80053; 80202; 82140; 82962; 83036; 85025; 85027; 87040; 87075; 87076; 87116; 87186; 96361; 96365; G0378; A6260; J0295; J1170; J1335; J1644; J1815; J2250; J2405; J2704; J3010; J3370; J7030; J7040

== ENCOUNTER 2020-08-08 08:41 | Outpatient (CLI) | payer OTHER ==
[2020-08-08] MEDS ORDERED: LIDOCAINE (4%) 40 MG/ML TOPICAL SOLN 50 ML BOTTLE TP ONE (08:54)
[2020-08-08] MEDS ORDERED: SILVER NITRATE APPLICATOR 1 EA TP ONE (09:38)
[2020-08-08] MEDS ORDERED: SODIUM CHLORIDE 0.9% IRR 500 ML BOTTLE IR ONE (09:38)
== END 2020-08-08 08:42 | disposition home or self-care (01) ==
LOC: WOUND 08:41
PROVIDERS: ATTEND Surgery
DX: T81.89XA Other complications of procedures, not elsewhere classified, initial encounter (principal); E11.9 Type 2 diabetes mellitus without complications; I10 Essential (primary) hypertension; Z98.890 Other specified postprocedural states; Y83.8 Other surgical procedures as the cause of abnormal reaction of the patient, or of later complication, without mention of misadventure at the time of the procedure; Y92.234 Operating room of hospital as the place of occurrence of the external cause
CPT/HCPCS: 11042; 11045; G0463; 99204; 99214

== ENCOUNTER 2020-08-13 13:46 | Outpatient (CLI) | payer OTHER ==
[2020-08-13] MEDS ORDERED: LIDOCAINE (4%) 40 MG/ML TOPICAL SOLN 50 ML BOTTLE TP SCH (14:00)
== END 2020-08-13 13:47 | disposition home or self-care (01) ==
LOC: WOUND 13:46
PROVIDERS: ATTEND Surgery
DX: T81.89XD Other complications of procedures, not elsewhere classified, subsequent encounter (principal); E11.621 Type 2 diabetes mellitus with foot ulcer; L97.522 Non-pressure chronic ulcer of other part of left foot with fat layer exposed; I10 Essential (primary) hypertension; Z98.890 Other specified postprocedural states; Y83.8 Other surgical procedures as the cause of abnormal reaction of the patient, or of later complication, without mention of misadventure at the time of the procedure

== ENCOUNTER 2020-08-20 08:43 | Outpatient (CLI) | payer SELFPAY ==
[2020-08-20] MEDS ORDERED: LIDOCAINE (4%) 40 MG/ML TOPICAL SOLN 50 ML BOTTLE TP ONE (09:32)
== END 2020-08-20 08:44 | disposition home or self-care (01) ==
LOC: WOUND 08:43
PROVIDERS: ATTEND Surgery
DX: T81.89XD Other complications of procedures, not elsewhere classified, subsequent encounter (principal); E11.621 Type 2 diabetes mellitus with foot ulcer; L97.512 Non-pressure chronic ulcer of other part of right foot with fat layer exposed; L97.522 Non-pressure chronic ulcer of other part of left foot with fat layer exposed; L84 Corns and callosities; E11.51 Type 2 diabetes mellitus with diabetic peripheral angiopathy without gangrene; I10 Essential (primary) hypertension; Z98.890 Other specified postprocedural states; Y83.8 Other surgical procedures as the cause of abnormal reaction of the patient, or of later complication, without mention of misadventure at the time of the procedure

== ENCOUNTER 2020-08-27 08:53 | Outpatient (CLI) | payer OTHER ==
[2020-08-27] MEDS ORDERED: LIDOCAINE (4%) 40 MG/ML TOPICAL SOLN 50 ML BOTTLE TP ONE (09:30)
== END 2020-08-27 08:54 | disposition home or self-care (01) ==
LOC: WOUND 08:53
PROVIDERS: ATTEND Surgery
DX: T81.89XD Other complications of procedures, not elsewhere classified, subsequent encounter (principal); E11.621 Type 2 diabetes mellitus with foot ulcer; L97.512 Non-pressure chronic ulcer of other part of right foot with fat layer exposed; L97.522 Non-pressure chronic ulcer of other part of left foot with fat layer exposed; L84 Corns and callosities; E11.51 Type 2 diabetes mellitus with diabetic peripheral angiopathy without gangrene; I10 Essential (primary) hypertension; Z98.890 Other specified postprocedural states; Y83.8 Other surgical procedures as the cause of abnormal reaction of the patient, or of later complication, without mention of misadventure at the time of the procedure

== ENCOUNTER 2020-09-10 09:02 | Outpatient (CLI) | payer OTHER ==
[2020-09-10] MEDS ORDERED: LIDOCAINE (4%) 40 MG/ML TOPICAL SOLN 50 ML BOTTLE TP ONE (09:45)
== END 2020-09-10 09:03 | disposition home or self-care (01) ==
LOC: WOUND 09:02
PROVIDERS: ATTEND Surgery
DX: E11.621 Type 2 diabetes mellitus with foot ulcer (principal); L97.522 Non-pressure chronic ulcer of other part of left foot with fat layer exposed; L97.518 Non-pressure chronic ulcer of other part of right foot with other specified severity; L84 Corns and callosities; E11.51 Type 2 diabetes mellitus with diabetic peripheral angiopathy without gangrene; I10 Essential (primary) hypertension; Z98.890 Other specified postprocedural states

== ENCOUNTER 2020-09-24 09:19 | Outpatient (CLI) | payer OTHER ==
[2020-09-24] MEDS ORDERED: LIDOCAINE (4%) 40 MG/ML TOPICAL SOLN 50 ML BOTTLE TP ONE (09:24)
== END 2020-09-24 09:20 | disposition home or self-care (01) ==
LOC: WOUND 09:19
PROVIDERS: ATTEND Surgery
DX: E11.621 Type 2 diabetes mellitus with foot ulcer (principal); L97.522 Non-pressure chronic ulcer of other part of left foot with fat layer exposed; L97.512 Non-pressure chronic ulcer of other part of right foot with fat layer exposed; L84 Corns and callosities; E11.51 Type 2 diabetes mellitus with diabetic peripheral angiopathy without gangrene; I10 Essential (primary) hypertension; Z98.890 Other specified postprocedural states

== ENCOUNTER 2020-10-08 09:19 | Outpatient (CLI) | payer OTHER ==
[2020-10-08] MEDS ORDERED: LIDOCAINE (4%) 40 MG/ML TOPICAL SOLN 50 ML BOTTLE TP ONE (09:26)
== END 2020-10-08 09:20 | disposition home or self-care (01) ==
LOC: WOUND 09:19
PROVIDERS: ATTEND Surgery
DX: E11.621 Type 2 diabetes mellitus with foot ulcer (principal); L97.522 Non-pressure chronic ulcer of other part of left foot with fat layer exposed; L97.512 Non-pressure chronic ulcer of other part of right foot with fat layer exposed; L84 Corns and callosities; E11.51 Type 2 diabetes mellitus with diabetic peripheral angiopathy without gangrene; I10 Essential (primary) hypertension; Z98.890 Other specified postprocedural states